=== PATIENT | female | born 1990 | race Caucasian/White ===

== ENCOUNTER 2017-10-18 18:54 | Emergency (ER) | payer OTHER ==
[~2017-10-18] VITALS: Ht 162.6 cm; Wt 150.6 kg
--- OUTSIDE RECORDS SUMMARY | ~2017-10-18 | XMS | Clinical Summary ---
Demographics + + + | Address | [address] | | | [address] | | | [place] [address] | + + + | Home Phone | | + + + | Preferred Language | Unknown | + + + | Marital Status | | + + + | Church Affiliation | Unknown | + + + | Race | Unknown | + + + | Ethnic Group | Unknown | + + + Author + + + | Author | [facility] | + + + | Organization | [facility] | + + + | Address | Unknown | + + + | Phone | Unavailable | + + + Support + + + + + | Name | Relationship | Address | Phone | + + + + + | Dieter Bourne | ECON | [address], [place] | | | | | [address] | | + + + + + Care Team Providers + +------+ + | Care Reception Clerk Name | Role | Phone | + +------+ + | Clinic, [facility] | PP | Unavailable | | Community | | | + +------+ + Allergies Not on File Current Medications Not on file Active Problems Not [...] on file | | + + + Plan of Treatment Not on file Results Not on filefrom Last 3 Months"
--- OUTSIDE RECORDS SUMMARY | ~2017-10-18 | XMS | Clinical Summary ---
Demographics + + + | Address | [address] | | | [address] | | | [place] [address] | + + + | Home Phone | | + + + | Preferred Language | Unknown | + + + | Marital Status | | + + + | Evangelical Affiliation | Unknown | + + + | Race | Unknown | + + + | Ethnic Group | Unknown | + + + Author + + + | Author | [email or web address] | + + + | Organization | [email or web address] | + + + | Address | Unknown | + + + | Phone | Unavailable | + + + Support + + + + + | Name | Relationship | Address | Phone | + + + + + | Dieter Bourne | ECON | [address], [place] | | | | | [address] | | + + + + + Care Team Providers + +------+ + | Care Data Librarian Name | Role | Phone | + +------+ + | Clinic, [facility] | PP | Unavailable | | Community [...]
[~2017-10-18 18:54] MED LIST: ABILIFY MAINTE400 M1 IM; ABILIFY10 MG PO; AUGMENTIN 875-1 EACH PO; BACTRIM DS TAB1 EACH PO; CEPHALEXIN500 MG PO; CYCLOBENZAPRINE10 MG PO; LEXAPRO10 MG PO; MOBIC15 MG PO; MOTRIN IB200 MG PO; NICOTINE PATCH1 EACH TD; NORCO 5-325 TA1 EACH PO; PERCOCET 5-3251 EACH PO; PROZAC20 MG PO; VITAFOL-OB+DHA1 EACH PO
[2017-10-18] MEDS ORDERED: MELOXICAM7.5 MG PO (19:11)
[2017-10-18] MEDS ORDERED: LAMICTAL100 MG PO (19:11)
[2017-10-18] MEDS ORDERED: CRUTCH1 EACH (19:32)
== END 2017-10-18 19:40 | disposition home or self-care (01) ==
LOC: ED 18:54
DX: M25.562 Pain in left knee (principal); G89.29 Other chronic pain; F17.200 Nicotine dependence, unspecified, uncomplicated; Z88.8 Allergy status to other drugs, medicaments and biological substances; Z79.899 Other long term (current) drug therapy; Z98.890 Other specified postprocedural states
CPT/HCPCS: 73560; 99283

== ENCOUNTER 2018-04-21 17:39 | Emergency (ER) | payer OTHER ==
[~2018-04-21] VITALS: Ht 162.6 cm; Wt 145.2 kg
--- OUTSIDE RECORDS SUMMARY | ~2018-04-21 | XMS | Encounter Summary ---
Demographics + + + | Address | [address] | | | [place] [address] | + + + | Home Phone | | + + + | Preferred Language | Unknown | + + + | Marital Status | Single | + + + | Hinduism Affiliation | Unknown | + + + | Race | Unknown | + + + | Ethnic Group | Unknown | + + + Author + + + | Author | [facility] | + + + | Organization | [facility] | + + + | Address | Unknown | + + + | Phone | Unavailable | + + + Support + + +---------+ + | Name | Relationship | Address | Phone | + + +---------+ + | Nico Romero | ECON | Unknown | | + + +---------+ + | Amy Scanlon | ECON | Unknown | | + + +---------+ + Care Team Providers + +------+ + | Care Cemetery Vault Installer Name | Role | Phone | + +------+ + | Kari Flores PA-C | PCP | | + +------+ + Reason for Visit + + + | Reason | Comments | + + + | Establish Care | Headaches | + + + Consult and Treat (Routine) + +--------+ + + + + | Status | Reason | Specialty | Diagnoses / | Referred By | Referred To | | | | | Procedures | Contact | Contact | + +--------+ + + + + | Authorized | | Neurology | Diagnoses | Mark, | Concepción, | | | | | Benign | Kari | MD Ary | | | | | intracranial | E, PA-C | [address] | | | | | | [address] | | | | | hypertension | [address] | [place], [place] | | | | | | [place], | [address] Phone: | | | | | | [place] | [phone] | | | | | | [address] | Fax: | | | | | | Phone: | [phone] | | | | | | [phone] | | | | | | | Fax: | | | | | | | [phone] | | + +--------+ + + + + Encounter Details +--------+---------+ + + + | Date | Type | Department | Care Team | Description | +--------+---------+ + + + | 02/16/ | Office | [facility] | Ary Beebe, | Pseudotumor cerebri | | 2018 | Visit [facility] | [address] | (Primary Dx); | | | | [address] | [place] | Tension headache | | | | [place] | [address] | | | | | [address] | | | | | | [phone] | | | +--------+---------+ + + + Social History + +-------+ +--------+------+ | Tobacco Use | Types | Packs/Day | Years | Date | | | | | Used | | + +-------+ +--------+------+ | Current Every Day | | 1 | 15 | | | Smoker | | | | | + +-------+ +--------+------+ + +---+---+---+ | Smokeless Tobacco: | | | | | Never Used | | | | + +---+---+---+ + + | Tobacco Cessation: Ready to Quit: No; Counseling Given: No | + + + + +---------+ + | Alcohol Use | Drinks/We | oz/Week | Comments | | | ek | | | + + +---------+ + | No | | | | + + +---------+ + + + + | Sex Assigned at | Date Recorded | | | | + + + | Not on file | | + + + as of this encounter Last Filed Vital Signs + + + + | Vital Sign | Reading | Time Taken | + + + + | Blood Pressure | 119/78 | 02/16/2018 10:12 AM PDT | + + + + | Pulse | 76 | 02/16/2018 10:12 AM PDT | + + + + | Temperature | - | - | + + + + | Respiratory Rate | - | - | + + + + | Oxygen Saturation | 99% | 02/16/2018 10:12 AM PDT | + + + + | Inhaled Oxygen | - | - | | Concentration | | | + + + + | Weight | 145.6 kg (321 lb) | 02/16/2018 10:12 AM PDT | + + + + | Height | 162.6 cm (5' 4") | 02/16/2018 10:12 AM PDT | + + + + | Body Mass Index | 55.1 | 02/16/2018 10:12 AM PDT | + + + + in this encounter Instructions Patient Instructions - Ary Beebe MD - 02/16/2018 10:15 AM PDTWill order a spinal t ap to check the opening pressure. If it is elevated, you will be notified to start Diamox. You will also be notified to then go see an eye doctor to get visual eng done Try and work on weight management Drink about 6-8 glasses of water daily Use the BiPAP regularly Get labsin this encounter Progress Notes Ary Beebe MD - 02/16/2018 10:15 AM PDTFormatting of this note may be different fro m the original. Subjective: Patient ID: Concepcion Fierro is a 27 y.o. female here for evaluation of headache. Referred b y PCP Ms Kari Flores PA-C HPI The following portions of the patient's history were reviewed and updated as appropriate an d is available elsewhere in the record: allergies, current medications, past family history, past medical history, past social history, past surgical history and problem list. Concepcion is a 27 yo lady with h/o pseudotumor cerebri, morbid obesity, h/o schizophrenia. Cocnepcion states that she has a lengthy history of headaches that began in 2004. She was init ially evaluated by Dr. Armstrong in [address] of the head which did not show any mas s. She did have a lumbar puncture in October 2007 and opening pressure was recorded at 37 mm/wa ter. She recalls that Dr. Armstrong had put her on Diamox which she took for a couple of year s. She then lost medical insurance and did not follow up. She does not recall any prior lo ss of vision. She states that she continues to have headaches. However, in the last six mo nths they have worsened and each headache seems to last about a week. She does take Mobic a nd Tylenol which helps a little. She has also tried caffeine in the past. Headaches are lo cated at the forehead or the base of the neck. She reports that headaches are not very inte nse, usually about 3 out of 10. It feels like a tight sensation or a sharp sensation someti mes. However, she states that she cannot handle loud noises and especially indoors and she is sensitive to having music as well as somebody talking at the same time. She does have a history of migraines but only about twice a year. She denies any whooshing sound in her ears. Vision has not blackened any time but she does feel that it fluctuates sometimes and goes out of focus for a few seconds. It is has occurred at least twice a mario h in the past few months. She does feel better if she lies down. She has two children born in 2011 and 2015. She gained a lot of weight with her second pre gnancy. 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 She intends to quit completely. Abhijit cuevas is also trying to quit marijuana. She recalls being about 200 pounds weight in 2007, currently 321 pounds. She believes that the medication that she takes was contributing as well. No h/o growth hormone, tetracyclines, retinoids, vitamin A supplements, current lithium use . Was on it in the past. No h/o Thyroid replacement No h/o recent corticosteroid use/cessation No h/o Db disease, Hypoparathyroidism, SLE Is not sure if she has PCOS. Has sleep apnea and uses BiPAP Current Outpatient Prescriptions: escitalopram (LEXAPRO) 20 MG tablet, Take 20 mg by mouth daily., Disp: , Rfl: Etonogestrel (IMPLANON SC), Inject into the skin., Disp: , Rfl: lamoTRIgine (LAMICTAL) 100 MG tablet, Take 100 mg by mouth daily., Disp: , Rfl: meloxicam (MOBIC) 15 MG tablet, , Disp: , Rfl: penicillin v potassium (VEETID) 500 MG tablet, , Disp: , Rfl: Review of Systems HENT: Positive for hearing loss and voice change. Eyes: Positive for visual disturbance. Musculoskeletal: Positive for arthralgias and gait problem. Neurological: Positive for facial asymmetry and headaches. Psychiatric/Behavioral: Positive for confusion, decreased concentration, dysphoric mood, bone llucinations and self-injury. The patient is nervous/anxious. All other systems reviewed and are negative. Objective: BP 119/78 (BP Location: Right forearm, Patient Position: Sitting) | Pulse 76 | Ht 1.626 m (5' 4") | Wt 145.6 kg (321 lb) | SpO2 99% | ? No | BMI 55.10 kg/m Neurologic Exam Physical Exam GENERAL: young adult woman, morbidly obese, pleasant, in NAD HEENT: no neck rigidity , supple neck, pale discs but not engorged, disc margins seen clear ly HEART: RRR, no murmur LUNGS: bilateral breath sounds heard, no rhonchi EXTREMITIES: No pedal edema NEUROLOGIC EXAM: COGNITION: awake, alert, oriented x4,able to name, read, repeat, fluent speech, follows c ommands. CRANIAL NERVES: PERRL, visual eng full, EOMI, no nystagmus, facial sensation intact to light touch, facial movement symmetric full, hearing intact to finger rub bilat, palate elevates symmetric, SCM and trapezius 5/5 bilat, tongue protrudes midline. MOTOR: tone and bulk normal, no pronator drift, strength 5/5 throughout Delt Bic Tric Interossei WE WF HF KF KE DF PF R 5 5 5 5 5 5 5 5 5 5 5 L 5 5 5 5 5 5 5 5 5 5 5 REFLEXES: 2+ symmetric bilateral biceps, triceps, brachioradialis, patella, achilles. Toes down-going bilat SENSORY: intact to light touch, cold, and vibration throughout. COORDINATION: Finger nose finger intact bilat, Foot tapping intact bilat. ROMBERG: intact GAIT: mild wide based gait Assessment and Plan: Concepcion is a 27-year-old lady with a history of chronic headaches, diagnosis of pseudotumor cerebri in 2007, who was on carbonic anhydrase inhibitors for a couple of years who reports increased frequency of headaches over the last six months. She has mild blurring of vision intermittently. On examination she does not have signs of papilledema. The disks appear slightly pale. No other focal neurological deficits. IMPRESSION: Possible chronic tension headaches but pseudotumor cerebri has to be ruled out as the patient has history of marked obesity with weight gain of over 120 pounds in the las t 10 years. RECOMMENDATIONS: 1. I counseled the patient that if she does have pseudotumor cerebri, weight loss is the cu re. She would need to lose at least 15% of her current weight. 2. She was recommended to undergo lumbar puncture to document opening pressures. If the pr essures are elevated, I will start her on Diamox. 3. She would also be asked to obtain visual eng from an wood cabinet finisher. She has limited fu nds and therefore would like to wait for LP before seeing an wood cabinet finisher. She was advised ab out acute symptoms of vision loss and advised to go to the ER if she has that. 4. Plan to follow up in 2-3 weeks. in this encounter Plan of Treatment +--------+ + + + + | Date | Type | Specialty | Care Team | Description | +--------+ + + + + | 05/22/ | Office | Neurology | Aftabniviamaria dAry, | | | 2017 | Visit | | MD Harvey Jamison | | | | | | [place] | | | | | | [address] | | | | | | | | +--------+ + + + + | 06/06/ | Procedure | Plastic Surgery | Larias Carpenter | | | 2017 | visit | | [facility] [address] | | | | | | [address] | | | | | | [place] [address] | | | | | | [phone] | | | | | | | | +--------+ + + + + as of this encounter Results X-ray lumbar puncture diagnostic (03/28/2018 10:23 AM) + + + | Impressions | Performed At | + + + | 1. Successful diagnostic lumbar puncture and CSF collection. | [facility] | | 2. 20-mL of CSF was collected and sent to the laboratory. | [facility] | | 3. Post procedure instructions were given to the | | | patient. Specifically, I informed the patient not to perform any | | | strenuous activity or heavy lifting for the next 24 hours. The | | | patient was also instructed to call the department for instructions if | | | any signs of post dural puncture headache developed over the next | | | several days. I explained that bedrest and caffeine products can | | | help, but if the symptoms do not resolve after several days of bedrest | | | it may be necessary to perform an epidural blood patch. | | | | | + + + + + + | Narrative | Performed At | + + + | [facility] X[facility] LUMBAR PUNCTURE DIAGNOSTIC 03/28/2018 10:23 AM | [facility] | | HISTORY: 27 years. Female. Pseudotumor cerebri. | [facility] | | COMPARISON: 11/06/2007. DESCRIPTION OF PROCEDURE: Prior to | | | beginning the procedure, I obtained written informed consent and I | | | marked the patient's skin on the side where the procedure was to be | | | performed. A timeout was performed. The patient was placed in | | | the prone position. The skin site over the midline L4-L5 | | | interlaminar notch was selected and marked. The skin was then | | | prepped and draped in the usual sterile fashion and anesthetized with | | | 1% lidocaine buffered with sodium bicarbonate. Subsequently, a | | | 22-gauge 6 inch spinal needle was advanced into the thecal sac. CSF | | | was obtained on the first attempt. Tubing was attached to the hub | | | of the needle and a total volume of 20-mL of CSF was collected and | | | distributed over 4 tubes. Color: clear. The needle was then | | | removed. The patient tolerated the procedure well. No | | | complications. FLUOROSCOPY TIME: 0.1 minutes. PEAK SKIN DOSE: | | | 29.6 mGy. COMPLICATIONS: None. Opening pressure at the | | | beginnin.5 cm of water. Opening pressure after removal of 20 cc | | | of water: 18.5 cm of water. | | + + + + + | Procedure Note | + + | Jacques, Rad Results In - 03/28/2018 12:01 PM [facility] LUMBAR PUNCTURE | | [id number]/9/2018 10:23 AMHISTORY:27 years. Female. Pseudotumor | | cerebri.COMPARISON:11/06/2007.DESCRIPTION OF PROCEDURE:Prior to beginning the procedure, | | I obtained written informed consent and I marked the patient's skin on the side where | | the procedure was to be performed. A timeout was performed. The patient was placed in | | the prone position. The skin site over the midline L4-L5 interlaminar notch was | | selected and marked. The skin was then prepped and draped in the usual sterile fashion | | and anesthetized with 1% lidocaine buffered with sodium bicarbonate. Subsequently, a | | 22-gauge 6 inch spinal needle was advanced into the thecal sac. CSF was obtained on the | | first attempt. Tubing was attached to the hub of the needle and a total volume of | | 20-mL of CSF was collected and distributed over 4 tubes. Color: clear. The needle was | | then removed. The patient tolerated the procedure well.No complications.FLUOROSCOPY | | TIME:0.1 minutes.PEAK SKIN DOSE:29.6 mGy.COMPLICATIONS:None.Opening pressure at the | | beginnin.5 cm of water.Opening pressure after removal of 20 cc of water: 18.5 cm of | | water.IMPRESSION:1. Successful diagnostic lumbar puncture and CSF collection.2. 20-mL | | of CSF was collected and sent to the laboratory.3. Post procedure instructions were | | given to the patient. Specifically, I informed the patient not to perform any strenuous | | activity or heavy lifting for the next 24 hours. The patient was also instructed to | | call the department for instructions if any signs of post dural puncture headache | | developed over the next several days. I explained that bedrest and caffeine products | | can help, but if the symptoms do not resolve after several days of bedrest it may be | | necessary to perform an epidural blood patch. | | | |COMPLICATIONS: | |None. | | | |Opening pressure at the beginnin.5 cm of water. | |Opening pressure after removal of 20 cc of water: 18.5 cm of water. | | | |IMPRESSION: | |1. Successful diagnostic lumbar puncture and CSF collection. | |2. 20-mL of CSF was collected and sent to the laboratory. | |3. Post procedure instructions were given to the patient. Specifically, I informed the pa tient not to perform any strenuous activity or heavy lifting for the next 24 hours. The pat ient was also instructed to call | |the department for instructions if any signs of post dural puncture headache developed over the next several days. I explained that bedrest and caffeine products can help, but if the symptoms do not resolve after | |several days of bedrest it may be necessary to perform an epidural blood patch. | | | | | + + + + + + + | Performing | Address | City/State/Zipcode | Phone Number | | Organization | | | | + + + + + | [facility] | [address] | [place] [address] | | + + + + + Protein, CSF (03/28/2018 10:20 AM) + +-------+ + + | Component | Value | Ref Range | Performed At | + +-------+ + + | CSF TOTAL PROTEIN | 24 | 15 - 45 mg/dL | [facility] | + +-------+ + + + + | Specimen | + + | Cerebrospinal Fluid | | - CSF | + + + + + + + | Performing | Address | City/State/Zipcode | Phone Number | | Organization | | | | + + + + + | [facility] | [address] | [place] [address] | | + + + + + Glucose, CSF (03/28/2018 10:20 AM) + +-------+ + + | Component | Value | Ref Range | Performed At | + +-------+ + + | CSF GLUCOSE | 58 | 45 - 90 mg/dL | [facility] | + +-------+ + + + + | Specimen | + + | Cerebrospinal Fluid | | - Lumbar Puncture | + + + + + + + | Performing | Address | City/State/Zipcode | Phone Number | | Organization | | | | + + + + + | [facility] | [address] | [place] [address] | | + + + + + CSF Cell Count With Differential (03/28/2018 10:20 AM) + + + + + | Component | Value | Ref Range | Performed At | + + + + + | COLOR | COLORLESS | | [facility] | + + + + + | APPEARANCE | CLEAR | | [facility] | + + + + + | Tube Number, CSF | 3 | | [facility] | + + + + + | CSF RBC | 150 (H) | 0 /uL | [facility] | + + + + + | CSF WBC | 0 | 0 - 5 /uL | [facility] | + + + + + + + | Specimen | + + | Cerebrospinal Fluid | | - CSF | + + + + + + + | Performing | Address | City/State/Zipcode | Phone Number | | Organization | | | | + + + + + | [facility] | [address] | [place] [address] | | + + + + + Comprehensive metabolic panel (02/16/2018 11:17 AM) + + + + + | Component | Value | Ref Range | Performed At | + + + + + | SODIUM | 140 | 135 - 145 mmol/L | [facility] | | | | | [facility] | + + + + + | POTASSIUM | 4.2 | 3.5 - 4.9 mmol/L | [facility] | | | | | [facility] | + + + + + | CHLORIDE | 104 | 99 - 109 mmol/L | [facility] | | | | | [facility] | + + + + + | CO2 | 25 | 23 - 32 mmol/L | [facility] | | | | | [facility] | + + + + + | ANION GAP AGAP | 15 | 5 - 20 mmol/L | [facility] | | | | | [facility] | + + + + + | GLUCOSE | 81 | 65 - 99 mg/dL | [facility] | | | | | [facility] | + + + + + | BUN | 16 | 8 - 25 mg/dL | [facility] | | | | | [facility] | + + + + + | CREATININE | 0.8 | 0.50 - 1.00 mg/dL | [facility] | | | | | [facility] | + + + + + | BUN/CREAT | 20 | | [facility] | | | | | [facility] | + + + + + | CALCIUM | 8.9 | 8.5 - 10.5 mg/dL | [facility] | | | | | [facility] | + + + + + | TOTAL PROTEIN | 7.4 | 6.3 - 8.2 g/dL | [facility] | | | | | [facility] | + + + + + | Albumin | 3.7 | 3.6 - 5.0 g/dL | [facility] | | | | | [facility] | + + + + + | GLOBULIN | 3.7 | 1.3 - 4.9 g/dL | [facility] | | | | | [facility] | + + + + + | A/G | 1.0 | 1.0 - 2.4 | [facility] | | | | | [facility] | + + + + + | TBIL | 0.4 | 0.1 - 1.5 mg/dL | [facility] | | | | | [facility] | + + + + + | ALK PHOS | 92 | 35 - 115 U/L | [facility] | | | | | [facility] | + + + + + | AST | 17 | 10 - 45 U/L | [facility] | | | | | [facility] | + + + + + | ALT | 30 | 10 - 65 U/L | [facility] | | | | | [facility] | + + + + + | EGFR | >60Comment: GFR <60: | >60 mL/min/1.73_m2 | [facility] | | | CHRONIC KIDNEY DISEASE, | | LABORATORY | | | IF FOUND OVER A 3 MONTH | | | | | PERIOD. GFR <15: KIDNEY | | | | | FAILURE. FOR | | | | | AMERICANS, MULTIPLY THE | | | | | CALCULATED GFR BY 1.210. | | | | | This eGFR is calculated | | | | | using the MDRD IDVA | | | | | traceable equation. | | | + + + + + + + | Specimen | + + | Blood | + + + + + + + | Performing | Address | City/State/Zipcode | Phone Number | | Organization | | | | + + + + + | [facility] | [address] | [place] [address] | [phone] | | LABORATORY | [address] | | | + + + + + TSH (02/16/2018 11:17 AM) + +-------+ + + | Component | Value | Ref Range | Performed At | + +-------+ + + | TSH | 1.820 | 0.450 - 5.100 | [facility] | | | | u[iU]/mL | LABORATORY | + +-------+ + + + + | Specimen | + + | Blood | + + + + + + + | Performing | Address | City/State/Zipcode | Phone Number | | Organization | | | | + + + + + | [facility] | [address] | [place] [address] | [phone] | | LABORATORY | [address] | | | + + + + + CBC W/Auto Diff (Reflex to Manual) (02/16/2018 11:17 AM) + + + + + | Component | Value | Ref Range | Performed At | + + + + + | WBC | 12.23 (H) | 3.80 - 11.00 10*3/uL | [facility] | | | | | [facility] | + + + + + | RBC | 4.39 | 3.70 - 5.10 10*6/uL | [facility] | | | | | LAB[facility] | + + + + + | HGB | 14.1 | 11.3 - 15.5 g/dL | [facility] | | | | | [facility] | + + + + + | HCT | 40.7 | 34.0 - 46.0 % | [facility] | | | | | LAB[facility]ORY | + + + + + | MCV | 92.7 | 80.0 - 100.0 fL | [facility] | | | | | [facility]ORY | + + + + + | MCH | 32.2 | 27.0 - 34.0 pg | [facility] | | | | | [facility] | + + + + + | MCHC | 34.7 | 32.0 - 35.5 g/dL | [facility] | | | | | [facility] | + + + + + | RDW SD | 44.2 | 37 - 53 fL | [facility] | | | | | [facility] | + + + + + | PLT | 256 | 150 - 400 10*3/uL | [facility] | | | | | [facility] | + + + + + | MPV | 8.6 | fL | [facility] | | | | | [facility] | + + + + + | DIFF TYPE | AUTOMATED | | [facility] | | | | | [facility] | + + + + + | NEUTROPHILS | 60.07 | % | [facility] | | | | | [facility] | + + + + + | LYMPHOCYTES | 31.21 | % | [facility] | | | | | [facility] | + + + + + | MONOCYTES | 6.61 | % | [facility] | | | | | LAB[facility]ORY | + + + + + | EOSINOPHILS | 1.44 | % | [facility] | | | | | [facility] | + + + + + | BASOPHILS | 0.67 | % | [facility] | | | | | LAB[facility]ORY | + + + + + | NEUTROPHILS ABS | 7.35 | 1.90 - 7.40 10*3/uL | [facility] | | | | | [facility] | + + + + + | LYMPHOCYTES ABS | 3.82 | 1.00 - 3.90 10*3/uL | [facility] | | | | | [facility] | + + + + + | MONOCYTES ABS | 0.81 (H) | 0.00 - 0.80 10*3/uL | [facility] | | | | | [facility] | + + + + + | EOSINOPHILS ABS | 0.18 | 0.00 - 0.50 10*3/uL | [facility] | | | | | LAB[facility]ORY | + + + + + | BASOPHILS ABS | 0.08 | 0.00 - 0.10 10*3/uL | [facility] | | | | | [facility] | + + + + + + + | Specimen | + + | Blood | + + + + + + + | Performing | Address | City/State/Zipcode | Phone Number | | Organization | | | | + + + + + | [facility] | [address] | [place] [address] | [phone] | | LABORATORY | [address] | | | + + + + + in this encounter Visit Diagnoses + + | Diagnosis | + + | Pseudotumor cerebri - Primary | + + | Benign intracranial hypertension | + + | Tension headache | + +
--- OUTSIDE RECORDS SUMMARY | ~2018-04-21 | XMS | Encounter Summary ---
Demographics + + + | Address | [address] | | | [place] [address] | + + + | Home Phone | | + + + | Preferred Language | Unknown | + + + | Marital Status | Single | + + + | Buddhist Affiliation | Unknown | + + + | Race | Unknown | + + + | Ethnic Group | Unknown | + + + Author + + + | Author | [facility] [employer] | + + + | Organization [...] Team Providers + +------+ + | Care Vice President Client Services Name | Role | Phone | + +------+ + | Kari Flores PA-C | PCP | | + +------+ + Reason for Referral MRI/CAT Scan (Routine) +--------+--------+ + + + + | Status | Reason | Specialty | Diagnoses / | Referred By | Referred To | | | | | Procedures | Contact | Contact | +--------+--------+ + + + + | Closed | | Radiology | Diagnoses | [facility] | [facility] [address] | | | | | Pseudotumor | MD Ary | [address] | | | | | cerebri | [address] | | | | | Procedures | [address] | [place], [place] | | | | | CT head | [place], | [address] Phone: | | | | | without | [place] [address] | [phone] | | | | | contrast | Phone: | | | | | | | [phone] | | | | | | | Fax: | | | | | | | [phone] | | +--------+--------+ + + + + Encounter Details +--------+ + + + + | Date | Type | Department | Care Team | Description | +--------+ + + + + | 02/21/ | Telephone | [facility] | Patti, | | | 2017 | | Neuroscience [facility] | AIDAN Lafleur | | | | | [address] | | | | | | [place] | | | | | | [address] | | | | | | [phone] | | | +--------+ + + + + Social History + +-------+ [...] | | | + +---+---+---+ + + +---------+ + | Alcohol Use [...] + + + as of this encounter Plan of Treatment +--------+ + + + + | Date | Type | Specialty | Care Team | Description | +--------+ + + + + | 05/22/ | Office | Neurology | Ary Beebe, | | | 2017 | Visit | | MD Harvey Jamison | | | | | | [place] | | | | | | [address] | | | | | | | | +--------+ + + + + | 06/06/ | Procedure | Plastic Surgery | Larisa Carpenter | | | 2017 | visit | | [address] | | | | | | [address] | | | | | | [place] [address] | | | | | | [phone] | | | | | | | | +--------+ + + + + as of this encounter Results CT head without contrast (03/28/2018 8:10 AM) + + + | Impressions | Performed At | + + + | 1. Normal noncontrast CT scan of the head. 2. No evidence of | [facility] | | hydrocephalus, intracranial mass or cerebral edema that would preclude | RADIOLOGY | | lumbar puncture. Electronically signed by Kaushal Ricketts DO on | | | 03/28/2018 8:17 AM | | + + + + + + | Narrative | Performed At | + + + | [facility] HEAD WO CONTRAST 03/28/2018 8:10 AM HISTORY: | [facility] | | 27 years. Female. Pseudotumor cerebri. TECHNIQUE: 5-mm | RADIOLOGY | | axial noncontrast images were acquired from the foramen magnum through | | | the cranial vertex. Radiation dose reduction was performed with | | | automated exposure control. COMPARISON: CT head 11/06/2007 | | | FINDINGS: The brain parenchyma does not demonstrate acute intra-axial | | | hemorrhage, midline shift, mass effect or cerebral edema. The | | | ventricles, cisterns and sulci are normal in size and | | | configuration. Normal mattson-white differentiation is | | | preserved. No extra-axial fluid collections are noted. The | | | orbits and their contents are normal. The paranasal sinuses are | | | well aerated. No mucosal thickening or air-fluid levels are | | | noted. The mastoid air cells show normal pneumatization | | | bilaterally. No mastoid fluid noted. The osseous structures of | | | the calvaria do not demonstrate fracture. No lytic or blastic | | | lesions are noted. | | + + + + + | Procedure Note | + + | Jacques, Rad Results In - 03/28/2018 8:23 AM PDT [facility] HEAD WO | | [id number]/9/2018 8:10 AMHISTORY:27 years. Female. Pseudotumor cerebri.TECHNIQUE:5-mm | | axial noncontrast images were acquired from the foramen magnum through the cranial | | vertex. Radiation dose reduction was performed with automated exposure | | control.COMPARISON:CT head 11/06/2007FINDINGS:The brain parenchyma does not demonstrate | | acute intra-axial hemorrhage, midline shift, mass effect or cerebral edema. The | | ventricles, cisterns and sulci are normal in size and configuration. Normal mattson-white | | differentiation is preserved. No extra-axial fluid collections are noted. The orbits | | and their contents are normal. The paranasal sinuses are well aerated. No mucosal | | thickening or air-fluid levels are noted. The mastoid air cells show normal | | pneumatization bilaterally. No mastoid fluid noted. The osseous structures of the | | calvaria do not demonstrate fracture. No lytic or blastic lesions are | | noted.IMPRESSION:1. Normal noncontrast CT scan of the head.2. No evidence of | | hydrocephalus, intracranial mass or cerebral edema that would preclude lumbar | | puncture. | |differentiation is preserved. No extra-axial fluid collections are noted. The orbits and their contents are normal. The paranasal sinuses are well aerated. No mucosal thickening o r air-fluid levels are noted. The | |mastoid air cells show normal pneumatization bilaterally. No mastoid fluid noted. The oss eous structures of the calvaria do not demonstrate fracture. No lytic or blastic lesions ar e noted. | | | |IMPRESSION: | |1. Normal noncontrast CT scan of the head. | |2. No evidence of hydrocephalus, intracranial mass or cerebral edema that would preclude l umbar puncture. | | | | | + + + + + + + | Performing | Address | City/State/Zipcode | Phone Number | | Organization | | | | + + + + + | [facility] | [address] | [place] [address] | | + + + + + in this encounter Visit Diagnoses + + | Diagnosis | + + | Pseudotumor cerebri - Primary | + + | Benign intracranial hypertension | + +"
--- OUTSIDE RECORDS SUMMARY | ~2018-04-21 | XMS | Encounter Summary ---
Demographics + + + | Address | [address] | | | [place] [address] | + + + | Home Phone | | + + + | Preferred Language | Unknown | + + + | Marital Status | Single | + + + | Worship Affiliation | Unknown | + + + | Race | Unknown | + + + | Ethnic Group | Unknown | + + + Author + + + | Author | [facility] | + + + | Organization [...] Team Providers + +------+ + | Care Boot Turner Name | Role | Phone | + +------+ + | Kari Flores PA-C | PCP | | + +------+ + Reason for Visit + + + | Reason | Comments | + + + | Follow-up | Pseudotumor cerebri | + + + Consult and Treat [...] | | hypertension | [address] | [place], [place] | | | | | | [place], | [address] Phone: | | | | | | [place] | [phone] | | | | | | [address] | Fax: | | | | | | Phone: | [phone] | | | | | | [phone] | | | | | | | Fax: | | | | | | | [phone] | | + +--------+ + + + + Encounter Details +--------+---------+ + + + | Date | Type | Department | Care Team | Description | +--------+---------+ + + + | 10/09/ | Office | [facility] | Ary Beebe, | IIH (idiopathic | | 2018 | Visit | [facility] | [address] | intracranial | | | | [address] | [place] | hypertension) | | | | [place] | [address] | (Primary Dx); | | | | [address] | | Tension headache; | | | | [phone] | | Morbid obesity with | | | | | | BMI of 50.0-59.9, | | | | | | adult (HCC) | +--------+---------+ + + + Social History [...] + + + | Blood Pressure | 89/72 | 03/28/2018 1:13 PM PDT | + + + + | Pulse | 83 | 03/28/2018 1:13 PM PDT | + + + + | Temperature | - | - | + + + + | Respiratory Rate | - | - | + + + + | Oxygen Saturation | 100% | 03/28/2018 1:13 PM PDT | + + + + | Inhaled Oxygen | - | - | | Concentration | | | + + + + | Weight | 145.2 kg (320 lb) | 03/28/2018 1:13 PM PDT | + + + + | Height | 162.6 cm (5' 4") | 03/28/2018 1:13 PM PDT | + + + + | Body Mass Index | 54.93 | 03/28/2018 1:13 PM PDT | + + + + in this encounter Instructions Patient Instructions - Ary Beebe MD - 03/28/2018 1:15 PM PDTGo back to PCP and ge t a referral to a local consumer relations specialist. You will need visual eng and OCT if possible to ensure that your eyes are not being affe cted due to increased intracranial pressure. The spinal tap showed an opening pressure of 29.5 which is mildly elevated. We will start you back on Diamox Tab Diamox 250mg Take 1 tab twice a day for 3 days Then increase to 1 tab three times a day If headaches improve, stay on this dose If not, call back in 15 days. And you will be instructed to go up on the dose. in this encounter Progress Notes Ary Beebe MD - 03/28/2018 1:15 PM PDTFormatting of this note may be different fro m the original. Subjective: Patient ID: Kiarra Fierro is a 27 y.o. female here for follow up of intractable headache. HPI The following portions of the patient's history were reviewed and updated as appropriate an d is available elsewhere in the record: allergies, current medications, past family history, past medical history, past social history, past surgical history and problem list. Kiarra is a 27 yo lady from [place], [place] with h/o pseudotumor cerebri, morbid obesity, h/o schizophrenia. Kiarra states that she has a lengthy history of headaches that began in 2004. Was diagnose d with IIH -lumbar puncture in October 2007 with opening pressure recorded at 37 mm/water. She recalls that Dr. Armstrong had put her on Diamox which she took for a couple of years. She th en lost medical insurance and did not follow up. She does not recall any prior loss of visi on. She states that she continues to have headaches. However,six months prior to initial cons ult in January 2018, they have worsened and each headache seems to last about a week. She do es take Mobic and Tylenol which helps a little. She does have a history of migraines [...] has two children born in 2011 and 2015.She recalls being about 200 pounds weight in 200 8, currently 321 pounds. 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 Has sleep apnea and uses BiPAP On follow up, Here with a friend Has undergone LP today under fluoroscopic guidance. Opening pressure was documented as 29.5 cmH20. She was lying prone for this. Closing pressure was 18.5 She feels the pressure behind her eyes have reduced but her eyes feel sore. She also had se antonieta headache immediately after but that has resolved with a pain medication. She denies headaches as she sits up now. CT head was done prior to the procedure. IMPRESSION: 1. Normal noncontrast CT scan of the head. 2. No evidence of hydrocephalus, intracranial mass or cerebral edema that would preclude l umbar puncture. Current Outpatient Prescriptions: escitalopram (LEXAPRO) 20 MG tablet, Take 20 mg by mouth daily., Disp: , Rfl: Etonogestrel (IMPLANON SC), Inject into the skin., Disp: , Rfl: GuanFACINE HCl (INTUNIV) 4 MG TB24, Take 1 tablet by mouth., Disp: , Rfl: lamoTRIgine (LAMICTAL) 100 MG tablet, Take 100 mg by mouth 2 (two) times daily., Disp: , Rfl: meloxicam (MOBIC) 15 MG tablet, , Disp: , Rfl: No current facility-administered medications for this visit. Review of Systems No new symptoms compared to consult note dated 02/16/18 Objective: Physical Exam BP (!) 89/72 (BP Location: Left upper arm, Patient Position: Sitting) | Pulse 83 | Ht 1.6 26 m (5' 4") | Wt 145.2 kg (320 lb) | SpO2 100% | BMI 54.93 kg/m Young adult lady, morbidly obese. Mildly photophobic. Seems to be uncomfortable. Neuro Alert, oriented, fluent speech. PERRL. EOMI. No nystagmus. No papilledema (prior h/o) Face symmetric. Assessment and Plan: Kiarra is a 27-year-old lady with a history of chronic headaches, diagnosis of pseudotumor cerebri in 2007, who was on carbonic anhydrase inhibitors for a couple of years who reports increased frequency of headaches over the last six months. She has mild blurring of vision intermittently.On examination she does not have signs of papilledema. The disks appear slig htly pale. On follow up, Has undergone LP today under fluoroscopic guidance. Opening pressure was documented as 29.5 cmH20. She was lying prone for this. Closing pressure was 18.5 She feels the pressure behind her eyes have reduced but her eyes feel sore. She also had se antonieta headache immediately after but that has resolved with a pain medication. She denies headaches as she sits up now. CT head without contrast was done prior to the procedure today which was normal. IMPRESSION: Probable pseudotumor cerebri as LP revealed mild elevation of opening pressure at 29.5 cmH20. Significant weight gain over last few years also correlates with this diagn osis. However CT head does not show slit like ventricles which is seen typically with a diag nosis of pseudotumor cerebri. Papilledema is not seen on exam but this is unreliable in thos e who have prior history of pseudotumor cerebri as scarring of tissue can occur. Chronic tension headaches are still in the differential. RECOMMENDATIONS: 1. I counseled the patient about probable diagnosis. 2. Recommend that she see PCP and get a referral to a local anaesthesiologist or embroidery machine operator - Visual eng and optical coherence tomography will establish if optic nerve edema and vis ual field defects are present. This can be followed along during treatment. 3. Tab Diamox 250mg Take 1 tab twice a day for 3 days Then increase to 1 tab three times a day If headaches improve, stay on this dose If not, call back in 15 days. And you will be instructed to go up on the dose. She was advised about acute symptoms of vision loss and advised to go to the ER if she has that. Plan to follow up in 6 weeks or earlier if needed. At her request, she received a 2 day off work letter as she may have worsening headache fro m spinal tap today. in this encounter Plan of Treatment +--------+ + + + + | Date | Type | Specialty | Care Team | Description | +--------+ + + + + | 05/22/ | Office | Neurology | Ary Beebe, | | | 2017 | Visit | | MD Harvey Jamison | | | | | | [place] | | | | | | [id number] | | | | | | | | +--------+ + + + + | 06/06/ | Procedure | Plastic Surgery | Larisa Carpenter | | | 2017 | visit | | [address] | | | | | | [facility] | | | | | | [place] [address] | | | | | | [phone] | | | | | | | | +--------+ + + + + + +--------+ + + | Name | Priori | Associated Diagnoses | Order Schedule | | | ty | | | + +--------+ + + | Basic metabolic panel | Routin | IIH (idiopathic | Expected: | | | e | intracranial | 03/28/2018, Expires: | | | | hypertension) | 03/28/2019 | + +--------+ + + as of this encounter Visit Diagnoses + + | Diagnosis | + + | IIH (idiopathic intracranial hypertension) - Primary | + + | Benign intracranial hypertension | + + | Tension headache | + + | Morbid obesity with BMI of 50.0-59.9, adult (HCC) | + +
--- OUTSIDE RECORDS SUMMARY | ~2018-04-21 | XMS | Encounter Summary ---
Demographics + + + | Address | [address] | | | [place] [address] | + + + | Home Phone | | + + + | Preferred Language | Unknown | + + + | Marital Status | Single | + + + | Spiritism Affiliation | Unknown | + + + | Race | Unknown | + + + | Ethnic Group | Unknown | + + + Author + + + | Author | [facility] | + + + | Organization [...] Team Providers + +------+ + | Care Ship Joiner Name | Role | Phone | + +------+ + | Kari Flores PA-C | PCP | | + +------+ + Encounter Details +--------+ + + + + | Date | Type | Department | Care Team | Description | +--------+ + + + + | 03/28/ | Hospital | [facility] | Ary Beebe, | Pseudotumor cerebri | | 2018 | Encounter | [facility] | [address] | | | | | [address] | [place] | | | | | [place] [address] | [address] | | | | | [phone] | | | | | | | 1, Di Nurse | | | | | | Imaging, Ryan Naun | | +--------+ + + + + [...] + + + | Blood Pressure | 165/72 | 03/28/2018 10:25 AM PDT | + + + + | Pulse | 82 | 03/28/2018 10:25 AM PDT | + + + + | Temperature | 36.6 C (97.9 F) | 03/28/2018 8:00 AM PDT | + + + + | Respiratory Rate | 18 | 03/28/2018 10:25 AM PDT | + + + + | Oxygen Saturation | 99% | 03/28/2018 10:25 AM PDT | + + + + | Inhaled Oxygen | - | - | | Concentration | | | + + + + | Weight | - | - | + + + + | Height | - | - | + + + + | Body Mass Index | - | - | + + + + in this encounter Discharge Instructions Bette Apodaca RN - 03/28/2018Your doctor performed a lumbar puncture for either the angeles daniele of fluid for analysis, or to inject contrast for xrays and CT scan. Here are some instru ctions for you to care for yourself upon going home. ACTIVITY: Avoid strenuous activity for the next 24 hours. DIET: Drink plenty of fluids. We recommend at least 8 ounces every 2 hours. This will help min imize the risk of spinal headache. You may eat as desired. If you received medication for sedation or pain control, you may experience drowsiness, diz ziness, or blurred vision. You are instructed to: -Rest for the remainder of today. Avoid strenuous activity. -DO NOT drive or perform other tasks requiring alertness or coordination for the remainde r of the day. -Do not make important decision today. -Do not drink alcoholic beverages including beer, wine, or other spirits. It is not unusual to experience a mild headache. If this occurs, return to bedrest with you r head completely flat for another 12-24 hours. You may take Tylenol (acetaminophen) to redu ce your headache. Report to your doctor if you experience any of the following: -Persistent headache longer that 24 hours. -Nausea/Vomiting -Fever/chills -Any problems or concerns regarding this procedure. FOR ANY SEVERE SYMPTOMS, PLEASE REPORT TO YOUR NEAREST EMERGENCY DEPARTMENT If you have any questions regarding your procedure, you may contact the Radiology nurse [phone], ext. [phone] . in this encounter Medications at Time of Discharge + + +--------+---------+ + + | Medication | Sig. | Disp. | Refills | Start | End Date | | | | | | Date | | + + +--------+---------+ + + | acetaZOLAMIDE | Take 1 tablet by | 90 | 5 | 03/28/20 | | | (DIAMOX) 250 MG | mouth 3 (three) | tablet | | 18 | 8 | | tabletIndications: | times daily for 30 | | | | | | IIH (idiopathic | days. | | | | | | intracranial | | | | | | | hypertension) | | | | | | + + +--------+---------+ + + | escitalopram | Take 20 mg by mouth | | | | | | (LEXAPRO) 20 MG | daily. | | | | | | tablet | | | | | | + + +--------+---------+ + + | Etonogestrel | Inject into the | | | 03/20/20 | | | (IMPLANON SC) | skin. | | | 16 | | + + +--------+---------+ + + | GuanFACINE HCl | Take 1 tablet by | | | | | | (INTUNIV) 4 MG TB24 | mouth. | | | | | + + +--------+---------+ + + | lamoTRIgine | Take 100 mg by mouth | | | | | | (LAMICTAL) 100 MG | 2 (two) times | | | | | | tablet | daily. | | | | | + + +--------+---------+ + + | meloxicam (MOBIC) | | | | 01/17/20 | | | 15 MG tablet | | | | 18 | | + + +--------+---------+ + + as of this encounter Progress Notes Bette Apodaca RN - 03/28/2018 10:56 AM PDTPt ready for discharge. Will see neurologist darron navas in the afternoon today. Friend providing tx home ALEXANDRE Candelaria Corryn, RN - 03/28/2018 10:40 AM PDTOk for pt to get hydrocodone to help with pain . Pt reports feeling better when lying down. Pt. Is tolerating po well. Pt updated on new or ders and plan. ALEXANDRE Candelaria Corryn, RN - 03/28/2018 10:30 AM PDTPt reports bad headache and is tearful post pr ocedure. Pt. Is sitting up in bed and requesting pain medicine before being discharged. Call placed to Dr. Armstrong (who performed lp). Pt. Educated on lying down to help with headache as well as drinking lots of fluids. Coffee also provided for pt.. Patient cms unchanged, site c/d/i. Will wait for call back from on how to proceed. Bette Apodaca RN in this encounter Plan of Treatment +--------+ + + + + | Date | Type | Specialty | Care Team | Description | +--------+ + + + + | 05/22/ | Office | Neurology | Ary Beebe, | | | 2018 | Visit | | MD Harvey Jamison | | | | | | Dr [place] | | | | | | [id number] | | | | | | | | +--------+ + + + + | 06/06/ | Procedure | Plastic Surgery | Larisa Carpenter | | | 2017 | visit | | [address] | | | | | | [address] | | | | | | [place] [address] | | | | | | [phone] | | | | | | | | +--------+ + + + + as of this encounter Procedures + +--------+ + + + | Procedure Name | Priori | Date/Time | Associated Diagnosis | Comments | | | ty | | | | + +--------+ + + + | XR LUMBAR PUNCTURE | Routin | 03/28/2018 | Pseudotumor | Results for this | | DIAGNOSTIC | e | 10:23 AM | cerebri | procedure are in the | | | | PDT | | results section. | + +--------+ + + + | APTT | STAT | 03/28/2018 | | Results for this | | | | 8:32 AM | | procedure are in the | | | | PDT | | results section. | + +--------+ + + + | PROTIME-INR | STAT | 03/28/2018 | | Results for this | | | | 8:32 AM | | procedure are in the | | | | PDT | | results section. | + +--------+ + + + | CBC W/AUTO DIFF | STAT | 03/28/2018 | | Results for this | | (REFLEX TO MANUAL) | | 8:32 AM | | procedure are in the | | | | PDT | | results section. | + +--------+ + + + in this encounter Results X-ray lumbar puncture diagnostic [...] Rad Results In - 03/28/2018 12:01 PM PDT CONCEPCION LEONARD LUMBAR PUNCTURE | | [id number]/9/2018 10:23 AMHISTORY:27 years. Female. Pseudotumor | | [...] to the patient. Specifically, I informed the cinthya yañez not to perform any strenuous activity or heavy lifting for the next 24 hours. The rosemary singleton was also instructed to call | |the [...] | + + + + + | [facility] | [address] | [place] [address] | | + + + + + CBC W/Auto Diff (Reflex to Manual) (03/28/2018 8:32 AM) + + + + + | Component | Value | Ref Range | Performed At | + + + + + | WBC | 11.33 (H) | 3.80 - 11.00 K/uL | [facility] | + + + + + | RBC | 4.69 | 3.70 - 5.10 M/uL | [facility] | + + + + + | HGB | 15.1 | 11.3 - 15.5 g/dL | [facility] | + + + + + | HCT | 44.0 | 34.0 - 46.0 % | [facility] | + + + + + | MCV | 93.8 | 80.0 - 100.0 fl | [facility] | + + + + + | MCH | 32.2 | 27.0 - 34.0 pg | [facility] | + + + + + | MCHC | 34.3 | 32.0 - 35.5 g/dL | [facility] | + + + + + | RDW SD | 43.3 | 37 - 53 fl | [facility] | + + + + + | PLT | 247 | 150 - 400 K/uL | [facility] | + + + + + | MPV | 7.5 | fl | [facility] | + + + + + | DIFF TYPE | AUTOMATED | | [facility] | + + + + + | NEUTROPHILS | 64.88 | % | [facility] | + + + + + | LYMPHOCYTES | 24.73 | % | [facility] | + + + + + | MONOCYTES | 7.35 | % | [facility] | + + + + + | EOSINOPHILS | 1.68 | % | [facility] | + + + + + | BASOPHILS | 1.36 | % | [facility] | + + + + + | NEUTROPHILS ABS | 7.35 | 1.90 - 7.40 K/uL | [facility] | + + + + + | LYMPHOCYTES ABS | 2.80 | 1.00 - 3.90 K/uL | [facility] | + + + + + | MONOCYTES ABS | 0.83 (H) | 0.00 - 0.80 K/uL | [facility] | + + + + + | EOSINOPHILS ABS | 0.19 | 0.00 - 0.50 K/uL | [facility] | + + + + + | BASOPHILS ABS | 0.15 (H)Comment: Testing | 0.00 - 0.10 K/uL | [facility] | | | performed at [facility];[address] | | | | | [address];[place] | | | | | [address] | | | + + + + + + + | Specimen | + + | Blood | + + + + + + + | Performing | Address | City/State/Zipcode | Phone Number | | Organization | | | | + + + + + | [facility] | [address] | [place] [address] | | + + + + + APTT (03/28/2018 8:32 AM) + + + + + | Component | Value | Ref Range | Performed At | + + + + + | APTT | 30Comment: Testing | 23 - 32 seconds | [facility] | | | performed at [facility];[address] | | | | | [address];[place] | | | | | [address] | | | + + + + + + + | Specimen | + + | Blood | + + + + + + + | Performing | Address | City/State/Zipcode | Phone Number | | Organization | | | | + + + + + | [facility] | [address] | [place] [address] | | + + + + + Protime-INR (03/28/2018 8:32 AM) + + + + + | Component | Value | Ref Range | Performed At | + + + + + | INR | 1.0Comment: REFERENCE | | [facility] | | | RANGE:0.9 - | | | | | 1.2 NON-ANTICOAGULATE | | | | | D2.0 - 3.0 ALL OTHER | | | | | THERAPEUTIC | | | | | INDICATIONS2.5 - 3.5 | | | | | MECHANICAL HEART VALVES, | | | | | RECURRENT OR SYSTEMIC | | | | | EMBOLISMTesting | | | | | performed at [facility];[address] | | | | | [address];[place], [place] | | | | | [address] | | | + + + + + + + | Specimen | + + | Blood | + + + + + + + | Performing | Address | City/State/Zipcode | Phone Number | | Organization | | | | + + + + + | [facility] | [address] | [facility] [address] | | + + + + + in this encounter Visit Diagnoses + + | Diagnosis | + + | Pseudotumor cerebri | + + | Benign intracranial hypertension | + + Administered Medications + +--------+ + +------+------+ | Medication Order | MAR | Action | Dose | Rate | Site | | | Action | Date | | | | + +--------+ + +------+------+ | HYDROcodone-acetaminophen | Given | | 1 tablet | | | | (NORCO) 5-325 MG per tablet 1 | | 8 10:53 | | | | | tablet 1 tablet, Oral, STAT - | | PDT | | | | | Now, Parker 03/28/18 at 1100, For 1 | | | | | | | dose | | | | | | + +--------+ + +------+------+ +---+---+ | | | +---+---+ + +-------+ +-------+---+---+ | lidocaine 1 % injection 5 mL 5 | Given | | 5 mLs | | | | mL, Intradermal, Img Once PRN, | | 8 10:18 | | | | | for procedure, Starting Tue | | PDT | | | | | 03/28/18 at 0852, For 1 dose | | | | | | + +-------+ +-------+---+---+ +---+---+ | | | +---+---+ + +---------+ +---+-------+---+ | sodium chloride 0.9 % infusion | New Bag | | | 500 | | | at 500 mL/hr, Intravenous, Once | | 8 08:53 | | mL/hr | | | RT, 03/28/18 at 0930, For 1 | | PDT | | | | | dose, Intra-procedure (CATH/IR) | | | | | | + +---------+ +---+-------+---+ +---+---+ | | | +---+---+ in this encounter"
--- OUTSIDE RECORDS SUMMARY | ~2018-04-21 | XMS | Encounter Summary ---
Demographics + + + | Address | [address] | | | [place] [address] | + + + | Home Phone | | + + + | Preferred Language | Unknown | + + + | Marital Status | Single | + + + | Anglican Affiliation | Unknown | + + + | Race | Unknown | + + + | Ethnic Group | Unknown | + + + Author + + + | Author | [facility] | + + + | Organization [...] Team Providers + +------+ + | Care Motor Lodge Clerk Name | Role | Phone | + +------+ + | Kari Flores PA-C | PCP | | + +------+ + Reason for Visit Consult and Treat (Routine) + +--------+ + + + + | Status | Reason | Specialty | Diagnoses / | Referred By | Referred To | | | | | Procedures | Contact | Contact | + +--------+ + + + + | Pending | | Dermatology / | Diagnoses | Misty Flores Plastic | | Review | | Plastic | Sebaceous | Kari | Surgery [address] | | | | Surgery | cyst | DOM Coker | [place] | | | | | | [address] | Jaylene Mina | | | | | | Justina Sam[address] | [place], [place] | | | | | | [place], | [address] | | | | | | [place] | Phone: | | | | | | [address] | [phone] | | | | | | Phone: | Fax: | | | | | | [phone] | [phone] | | | | | | Fax: | | | | | | | [phone] | | + +--------+ + + + + Encounter Details +--------+---------+ + + + | Date | Type | Department | Care Team | Description | +--------+---------+ + + + | 04/17/ | Office | [facility] | Larisa Carpenter | Neoplasm of | | 2018 | Visit | Plastic 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, RESIDENTIAL PROGRAM WORKER [address] | uncertain behavior | | | | Dermatology [address] | [address] | of skin (Primary Dx) | | | | [address] | [place] [address] | | | | | [place], [place] | [phone] | | | | | [address] | | | | | | [phone] | | | +--------+---------+ + + + [...] + + + | Blood Pressure | - | - | + + + + | Pulse | - | - | + + + + | Temperature | - | - | + + + + | Respiratory Rate | - | - | + + + + | Oxygen Saturation | - | - | + + + + | Inhaled Oxygen | - | - | | Concentration | | | + + + + | Weight | 143.8 kg (317 lb) | 04/17/2018 2:45 PM PDT | + + + + | Height | 162.6 cm (5' 4") | 04/17/2018 2:45 PM PDT | + + + + | Body Mass Index | 54.41 | 04/17/2018 2:45 PM PDT | + + + + in this encounter Plan of Treatment +--------+ + + + + | Date | Type | Specialty | Care Team | Description | +--------+ + + + + | 05/22/ | Office | Neurology | Ary Beebe, | | | 2017 | Visit | | MD Harvey Jamison | | | | | | [place] | | | | | | [id number] | | | | | | | | +--------+ + + + + | 06/06/ | Procedure | Plastic Surgery | Larisa Carpenter | | | 2017 | visit | | [address] | | | | | | [address] | | | | | | [place] [address] | | | | | | [phone] | | | | | | | | +--------+ + + + + as of this encounter Visit Diagnoses + + | Diagnosis | + + | 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
--- OUTSIDE RECORDS SUMMARY | ~2018-04-21 | XMS | Encounter Summary ---
Demographics + + + | Address | [address] | | | [place] [address] | + + + | Home Phone | | + + + | Preferred Language | Unknown | + + + | Marital Status | Single | + + + | Druze Affiliation | Unknown | + + + | Race | Unknown | + + + | Ethnic Group | Unknown | + + + Author + + + | Author | [facility] | + + + | Organization [...] Team Providers + +------+ + | Care Fabricator Foam Rubber Name | Role | Phone | + +------+ + | Kari Flores PA-C | PCP | | + +------+ + Encounter Details +--------+ + + + + | Date | Type | Department | Care Team | Description | +--------+ + + + + | 03/28/ | Hospital | [facility] | Ary Beebe, | Pseudotumor cerebri | | 2018 | Encounter | [facility] | [address] | | | | | [address] | [place] | | | | | [place] [address] | [address] | | | | | [phone] | | | | | | | [...] you may contact the Radiology nurse [phone], ext. [phone] . in this encounter Medications at Time [...] | | | | | Dr [place] | | | | | | [address] | | | | | | | | +--------+ + + + + | 06/06/ | Procedure | Plastic Surgery | Larisa Carpenter | | | 2017 | visit | | [address] | | | | | | [address] | | | | | | [place] [address] | | | | | | [phone] | | | | | | | [...] PDT CONCEPCION LEONARD LUMBAR PUNCTURE | | [id number]/9/2018 10:23 AMHISTORY:27 years. Female. Pseudotumor | | [...] [facility] | [address] | [place] [address] | | + + + + + CBC W/Auto Diff (Reflex to Manual) (03/28/2018 8:32 AM) + + + + + | Component | Value | Ref Range | Performed At | + + + + + | WBC | 11.33 (H) | 3.80 - 11.00 K/uL | [facility] | + + + + + | RBC | 4.69 | 3.70 - 5.10 M/uL | [facility] | + + + + + | HGB | 15.1 | 11.3 - 15.5 g/dL | [facility] | + + + + + | HCT | 44.0 | 34.0 - 46.0 % | [facility] | + + + + + | MCV | 93.8 | 80.0 - 100.0 fl | [facility] | + + + + + | MCH | 32.2 | 27.0 - 34.0 pg | [facility] | + + + + + | MCHC | 34.3 | 32.0 - 35.5 g/dL | [facility] | + + + + + | RDW SD | 43.3 | 37 - 53 fl | [facility] | + + + + + | PLT | 247 | 150 - 400 K/uL | [facility] | + + + + + | MPV | 7.5 | fl | [facility] | + + + + + | DIFF TYPE | AUTOMATED | | [facility] | + + + + + [...] 7.35 | 1.90 - 7.40 K/uL | [facility] | + + + + + | LYMPHOCYTES ABS | 2.80 | 1.00 - 3.90 K/uL | [facility] | + + + + + | MONOCYTES ABS | 0.83 (H) | 0.00 - 0.80 K/uL | [facility] | + + + + + | EOSINOPHILS ABS | 0.19 | 0.00 - 0.50 K/uL | [facility] | + + + + + | BASOPHILS ABS | 0.15 (H)Comment: Testing | 0.00 - 0.10 K/uL | [facility] | | | performed at [facility];[address] | | | | | [address];[place] | | | | | [address] | | | + + + + + + + | Specimen | + + | Blood | + + + + + + + | Performing | Address | City/State/Zipcode | Phone Number | | Organization | | | | + + + + + | [facility] | [address] | [place] [address] | | + + + + + APTT (03/28/2018 8:32 AM) + + + + + | Component | Value | Ref Range | Performed At | + + + + + | APTT | 30Comment: Testing | 23 - 32 seconds | [facility] | | | performed at [facility];[address] | | | | | [address];[place] | | | | | [address] | | | + + + + + + + | Specimen | + + | Blood | + + + + + + + | Performing | Address | City/State/Zipcode | Phone Number | | Organization | | | | + + + + + | [facility] | [address] | [place] [address] | | + + + + + Protime-INR (03/28/2018 8:32 AM) + + + + + | Component | Value | Ref Range | Performed At | + + + + + | INR | 1.0Comment: REFERENCE | | [facility] | | | RANGE:0.9 - | [...] | | | | | performed at [facility];[address] | | | | | [address];[place], [place] | | | | | [address] | | | + + + + + + + | Specimen | + + | Blood | + + + + + + + | Performing | Address | City/State/Zipcode | Phone Number | | Organization | | | | + + + + + | [facility] | [address] | [facility] [place] [address] | | + + + + + [...]
--- OUTSIDE RECORDS SUMMARY | ~2018-04-21 | XMS | Encounter Summary ---
Demographics + + + | Address | [address] | | | [place] [address] | + + + | Home Phone | | + + + | Preferred Language | Unknown | + + + | Marital Status | Single | + + + | Yazidi Affiliation | Unknown | + + + | Race | Unknown | + + + | Ethnic Group | Unknown | + + + Author + + + | Author | [facility] | + + + | Organization [...] | + + +---------+ + | Amy Scanoln | ECON | Unknown | | + + +---------+ + Care Team Providers + +------+ + | Care Elevator Adjuster Name | Role | Phone | + +------+ + | Kari Flores PA-C | PCP | | + +------+ + Encounter Details +--------+ + + + + | Date | Type | Department | Care Team | Description | +--------+ + + + + | 02/09/ | Documentati | [place] | Ary Beebe, | | | 2018 | on Only | [facility] | [address] | | | | | [address] | [place] | | | | | [place] | [address] | | | | | [address] | | | | | | [phone] | | | +--------+ + + + + Social History + +-------+ +--------+------+ | Tobacco Use | Types | Packs/Day | Years | Date | | | | | Used | | + +-------+ +--------+------+ | Never Assessed | | | | | + +-------+ +--------+------+ + + + | Sex Assigned at [...] [place] | | | | | | [address] | | | | | | | | +--------+ + + + + | 06/06/ | Procedure | Plastic Surgery | Larisa Carpenter | | | 2017 | visit | | [address] | | | | | | [address] | | | | | | [place] [address] | | | | | | [phone] | | | | | | | | +--------+ + + + + as of this encounter Visit Diagnoses Not on filein this encounter"
--- OUTSIDE RECORDS SUMMARY | ~2018-04-21 | XMS | Encounter Summary ---
Demographics + + + | Address | [address] | | | [place] [address] | + + + | Home Phone [...] + + + | Author | [employer] | + + + | Organization [...] Team Providers + +------+ + | Care Rubber Press Operator Name | Role | Phone | + [...] | Radiology | Diagnoses | Concepción | [facility] | | | | | Pseudotumor | MD Ary | [address] | | | | | cerebri | [address] | | | | | Procedures | Shaheen Mina | [place], [place] | | | | | CT head | [place], | [address] Phone: | | | | | without | [place] [address] | [phone] | | | | | contrast | Phone: | | | | | | | [phone] | | | | | | | Fax: | | | | | | | [phone] | | +--------+--------+ + + + + MRI/CAT Scan (Routine) +--------+--------+ + + + + | Status | Reason | Specialty | Diagnoses / | Referred By | Referred To | | | | | Procedures | Contact | Contact | +--------+--------+ + + + + | Closed | | Radiology | Diagnoses | Concepción | [facility] | | | | | Pseudotumor | MD Ary | [address] | | | | | cerebri | [address] | | | | | Procedures | Shaheen Mina | [place], [place] | | | | | CT head | [place], | [address] Phone: | | | | | without | [place] [address] | [phone] | | | | | contrast | Phone: | | | | | | | [phone] | | | | | | | Fax: | | | | | | | [phone] | | +--------+--------+ + + + + Reason for Visit MRI/CAT Scan (Routine) +--------+--------+ + + + + | Status | Reason | Specialty | Diagnoses / | Referred By | Referred To | | | | | Procedures | Contact | Contact | +--------+--------+ + + + + | Closed | | Radiology | Diagnoses | Concepción, | [facility] | | | | | Pseudotumor | MD Ary | [address] | | | | | cerebri | [address] | | | | | Procedures | Shaheen Mina | [place], [place] | | | | | CT head | [place], | [address] Phone: | | | | | without | [place] [address] | [phone] | | | | | contrast | Phone: | | | | | | | [phone] | | | | | | | Fax: | | | | | | | [phone] | | +--------+--------+ + + + + Encounter Details +--------+ + + + + | Date | Type | Department | Care Team | Description | +--------+ + + + + | 03/28/ | [facility] | [facility] | Ary Beebe, | Pseudotumor cerebri | | 2018 | Encounter | [facility] | [address] | | | | | [address] | [place] | | | | | [place] [address] | [phone] | | | | | [phone] | | | +--------+ + + + [...] + + + as of this encounter Medications at Time of Discharge [...] +--------+---------+ + + as of this encounter Plan [...] [place] | | | | | | [address] | | | | | | | | +--------+ + + + + | 06/06/ | Procedure | Plastic Surgery | Larisa Carpenter | | | 2017 | visit | | [address] | | | | | | [address] | | | | | | [place] [address] | | | | | | [phone] | | | | | | | | +--------+ + + + + as of this encounter Procedures + +--------+ + + + | Procedure Name | Priori | Date/Time | Associated Diagnosis | Comments | | | ty | | | | + +--------+ + + + | CT HEAD WO CONTRAST | Routin | 03/28/2018 | Pseudotumor | Results for this | | | e | 8:10 AM | cerebri | procedure are in the | | | | PDT | | results section. | + +--------+ + + + in this encounter Results CT head without contrast [...] WO CONTRAST 03/28/2018 8:10 AM HISTORY: | [facility] | | 27 years. Female. Pseudotumor cerebri. [...] | Procedure Note | + + | Addison Hanna Results In - 03/28/2018 8:23 AM PDT CONCEPCION ALBA HEAD WO | | [id number]/9/2018 8:10 AMHISTORY:27 years. Female. Pseudotumor cerebri.TECHNIQUE:5-mm | [...] | + + + + + | [facility] | [address] | [place] [place] [address] | | + + + + + in this encounter Visit Diagnoses + + | Diagnosis | + + | Pseudotumor cerebri | + + | Benign intracranial hypertension | + +"
--- OUTSIDE RECORDS SUMMARY | ~2018-04-21 | XMS | Encounter Summary ---
Demographics + + + | Address | [address] | | | [place] [address] | + + + | Home Phone | | + + + | Preferred Language | Unknown | + + + | Marital Status | Single | + + + | Judaism Affiliation | Unknown | + + + | Race | Unknown | + + + | Ethnic Group | Unknown | + + + Author + + + | Author | [employer] | + + + | Organization | [facility] | + + + | Address | Unknown | + + + | Phone | Unavailable | + + + Support + + +---------+ + | Name | Relationship | Address | Phone | + + +---------+ + | iNco Romero | ECON | Unknown | | + + +---------+ + | Amy Scanlon | ECON | Unknown | | + + +---------+ + Care Team Providers + +------+ + | Care Health Program Specialist Name | Role | Phone | + +------+ + | Kari Flores PA-C | PCP | | + +------+ + Encounter Details +--------+ + + + + | Date | Type | Department | Care Team | Description | +--------+ + + + + | 03/28/ | Lab | [facility] | Jose Hidalgo, | Pseudotumor cerebri | | 2018 | Requisition | [address] | Crisis Nurse | | | | | [place] [address] | | | | | | [phone] | | | +--------+ + + + [...] [place] | | | | | | [address] | | | | | | | | +--------+ + + + + | 06/06/ | Procedure | Plastic Surgery | Larisa Carpenter | | | 2018 | lashonda | | [address] | | | | | | [address] | | | | | | [place] [address] | | | | | | [phone] | | | | | | | | +--------+ + + + + as of this encounter Procedures + +--------+ + + + | Procedure Name | Priori | Date/Time | Associated Diagnosis | Comments | | | ty | | | | + +--------+ + + + | CSF CELL COUNT WITH | Routin | 03/28/2018 | Pseudotumor | Results for this | | DIFFERENTIAL | e | 10:20 AM | cerebri | procedure are in the | | | | PDT | | results section. | + +--------+ + + + | PROTEIN, CSF | Routin | 03/28/2018 | Pseudotumor | Results for this | | | e | 10:20 AM | cerebri | procedure are in the | | | | PDT | | results section. | + +--------+ + + + | GLUCOSE, CSF | Routin | 03/28/2018 | Pseudotumor | Results for this | | | e | 10:20 AM | cerebri | procedure are in the | | | | PDT | | results section. | + +--------+ + + + in this encounter Results Protein, CSF (03/28/2018 10:20 AM) + +-------+ + + | Component | Value | Ref Range | Performed At | + +-------+ + + | CSF TOTAL PROTEIN | 24 | 15 - 45 mg/dL | [facility] | + +-------+ + + + + | Specimen | + + | Cerebrospinal Fluid | | - CSF | + + + + + + + | Performing | Address | City/State/Zipcode | Phone Number | | Organization | | | | + + + + + | [facility] | [address] | [place] [address] | | + + + + + Glucose, CSF (03/28/2018 10:20 AM) + +-------+ + + | Component | Value | Ref Range | Performed At | + +-------+ + + | CSF GLUCOSE | 58 | 45 - 90 mg/dL | [facility] | + +-------+ + + + + | Specimen | + + | Cerebrospinal Fluid | | - Lumbar Puncture | + + + + + + + | Performing | Address | City/State/Zipcode | Phone Number | | Organization | | | | + + + + + | [facility] | [address] | [place] [address] | | + + + + + CSF Cell Count With Differential (03/28/2018 10:20 AM) + + + + + | Component | Value | Ref Range | Performed At | + + + + + | COLOR | COLORLESS | | [facility] | + + + + + | APPEARANCE | CLEAR | | [facility] | + + + + + | Tube Number, CSF | 3 | | [facility] | + + + + + | CSF RBC | 150 (H) | 0 /uL | [facility] | + + + + + | CSF WBC | 0 | 0 - 5 /uL | [facility] | + + + + + + + | Specimen | + + | Cerebrospinal Fluid | | - CSF | + + + + + + + | Performing | Address | City/State/Zipcode | Phone Number | | Organization | | | | + + + + + | [facility] | [address] | [place] [address] | | + + + + + in this encounter Visit Diagnoses + + | Diagnosis | + + | Pseudotumor cerebri | + + | Benign intracranial hypertension | + +"
--- OUTSIDE RECORDS SUMMARY | ~2018-04-21 | XMS | Encounter Summary ---
Demographics + + + | Address | [address] | | | [place] [address] | + + + | Home Phone | | + + + | Preferred Language | Unknown | + + + | Marital Status | Single | + + + | Gnosticist Affiliation | Unknown | + + + | Race | Unknown | + + + | Ethnic Group | Unknown | + + + Author + + + | Author | [facility] [employer] | + + + | Organization [...] Team Providers + +------+ + | Care Battery Mechanic Name | Role | Phone | + +------+ + | Kari Flores PA-C | PCP | | + +------+ + Encounter Details +--------+ + + + + | Date | Type | Department | Care Team | Description | +--------+ + + + + | 02/16/ | Lab | [facility] | Rian Cyr, | Pseudotumor cerebri | | 2017 | Requisition | [address] | Director Engineering | | | | | [place] [address] | | | | | | [phone] | | | +--------+ + + + [...] [place] | | | | | | [id number] | | | | | | | | +--------+ + + + + | 06/06/ | Procedure | Plastic Surgery | JaydenKby | | | 2018 | [place]ash[place] | | [address] | | | | | | [address] | | | | | | [place] [address] | | | | | | [phone] | | | | | | | | +--------+ + + + + as of this encounter Procedures + +--------+ + + + | Procedure Name | Priori | Date/Time | Associated Diagnosis | Comments | | | ty | | | | + +--------+ + + + | CBC W/AUTO DIFF | Routin | 02/16/2018 | Pseudotumor | Results for this | | (REFLEX TO MANUAL) | e | 11:17 AM | cerebri | procedure are in the | | | | PDT | | results section. | + +--------+ + + + | TSH | Routin | 02/16/2018 | Pseudotumor | Results for this | | | e | 11:17 AM | cerebri | procedure are in the | | | | PDT | | results section. | + +--------+ + + + | COMPREHENSIVE | Routin | 02/16/2018 | Pseudotumor | Results for this | | METABOLIC PANEL | e | 11:17 AM | cerebri | procedure are in the | | | | PDT | | results section. | + +--------+ + + + in this encounter Results Comprehensive metabolic panel (02/16/2018 11:17 AM) + [...] 92 | 35 - 115 U/L | [facility] | | | | | LABORATORY | + + + + + | AST | 17 | 10 - 45 U/L | [facility] | | | | | [facility]ORY | + + + + + | ALT | 30 | 10 - 65 U/L | [facility] | | | | | LABORATORY | + + + + + | EGFR | >60Comment: GFR <60: | >60 mL/min/1.73_m2 | [facility] | | | CHRONIC KIDNEY DISEASE, | [...] | | | | using the MDRD IDMS | | | | | traceable equation. | | | + + + + + + + | Specimen | + + | Blood | + + + + + + + | Performing | Address | City/State/Zipcode | Phone Number | | Organization | | | | + + + + + | [facility] | [address] | [place] [address] | [phone] | | LABORATORY | [place]. | | | + + + + [...] + + + | [facility] | [address] | [place] [address] | [phone] | | LABORATORY | [address]vd[address] | | [...] + + + | [facility] | [address] | [place] [address] | [phone] | | LABORATORY | Blvd[address] | | | + + + + + in this encounter Visit Diagnoses + + | Diagnosis | + + | Pseudotumor cerebri | + + | Benign intracranial hypertension | + +"
--- OUTSIDE RECORDS SUMMARY | ~2018-04-21 | XMS | Encounter Summary ---
Demographics + + + | Address | [address] | | | [place] [address] | + + + | Home Phone [...] + + + | Author | [employer] | + + + | Organization [...] Team Providers + +------+ + | Care Sr. Payroll Manager Name | Role | Phone | + [...] | Radiology | Diagnoses | Concepción | [facility] [address] | | | | | Pseudotumor | MD Ary | [address] | | | | | cerebri | [address] | | | | | Procedures | Shaheen Mina | [place], [place] | | | | | CT head | [place], | [address] Phone: | | | | | without | [place] [address] | [phone] | | | | | contrast | Phone: | | | | | | | [phone] | | | | | | | Fax: | | | | | | | [phone] | | +--------+--------+ + + + + Encounter Details +--------+ + + + + | Date | Type | Department | Care Team | Description | +--------+ + + + + | 02/21/ | Telephone | [facility] | Patti, | | | 2017 | | [facility] [place] | AIDAN Lafleur | | | | | [address] | | | | | | [place] | | | | | | [address] | | | | | | [phone] | | | +--------+ + + + [...] | | | | | [place] [address] | | | | | | [phone] | | | | | | | [...] CONCEPCION J FERRISCT HEAD WO | | [id number]/9/2018 8:10 AMHISTORY:27 years. Female. Pseudotumor cerebri.TECHNIQUE:5-mm | [...] [facility] | [address] | [place] [address] | | + + + + + in this encounter Visit Diagnoses + + | Diagnosis | + + | Pseudotumor cerebri - Primary | + + | Benign intracranial hypertension | + +"
--- OUTSIDE RECORDS SUMMARY | ~2018-04-21 | XMS | Encounter Summary ---
Demographics + + + | Address | [address] | | | [place] [address] | + + + | Home Phone | | + + + | Preferred Language | Unknown | + + + | Marital Status | Single | + + + | Church Affiliation | Unknown | + + + | Race | Unknown | + + + | Ethnic Group | Unknown | + + + Author + + + | Author | [facility] [employer] | + + + | Organization [...] Team Providers + +------+ + | Care Fisher Lobster Name | Role | Phone | + [...] | | hypertension | [address] | [place], [place] | | | | | | [place], | [address] Phone: | | | | | | [place] | [phone] | | | | | | [address] | Fax: | | | | | | Phone: | [phone] | | | | | | [phone] | | | | | | | Fax: | | | | | | | [phone] | | + +--------+ + + + + Encounter Details +--------+---------+ + + + | Date | Type | Department | Care Team | Description | +--------+---------+ + + + | 10/09/ | Office | [facility] | Ary Beebe, | 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 You will need visual eng and [...] Kiarra is a 27 yo lady [place], [place] with h/o pseudotumor cerebri, morbid obesity, h/o [...] and get a referral to a local dermatology nurse or seat cover installer - Visual eng and optical coherence tomography [...] [place] | | | | | | [address] | | | | | | | | +--------+ + + + + | 06/06/ | Procedure | Plastic Surgery | Larisa Carpenter | | | 2017 | visit | | [address] | | | | | | [facility] | | | | | | [place] [address] | | | | | | [phone] | | | | | | | [...]
--- OUTSIDE RECORDS SUMMARY | ~2018-04-21 | XMS | Clinical Summary ---
Demographics + + + | Address | [address] | | | [place] [address] | + + + | Home Phone | | + + + | Preferred Language | Unknown | + + + | Marital Status | Single | + + + | Amish Affiliation | Unknown | + + + | Race | Unknown | + + + | Ethnic Group | Unknown | + + + Author + + + | Author | [facility] [employer] | + + + | Organization [...] Team Providers + +------+ + | Care Salesperson Burial Plots Name | Role | Phone | + +------+ + | Kari Flores PA-C | PP | | + +------+ [...] + + + Current Medications + + +--------+---------+------+------+-------+ | Prescription | Sig. | Disp. | Refills | Star | End | Statu | | | | | | t | Date | s | | | | | | Date | | | + + +--------+---------+------+------+-------+ | meloxicam (MOBIC) | | | | 07/3 | | Activ | | 15 MG tablet | | | | 0/20 | | e | | | | | | 18 | | | + + +--------+---------+------+------+-------+ | lamoTRIgine | Take 100 mg by mouth | | | | | Activ | | (LAMICTAL) 100 MG | 2 (two) times | | | | | e | | tablet | daily. | | | | | | + + +--------+---------+------+------+-------+ | escitalopram | Take 20 mg by mouth | | | | | Activ | | (LEXAPRO) 20 MG | daily. | | | | | e | | tablet | | | | | | | + + +--------+---------+------+------+-------+ | Etonogestrel | Inject into the | | | 10/0 | | Activ | | (IMPLANON SC) | skin. | | | /20 | | e | | | | | | 16 | | | + + +--------+---------+------+------+-------+ | GuanFACINE HCl | Take 1 tablet by | | | | | Activ | | (INTUNIV) 4 MG TB24 | mouth. | | | | | e | + + +--------+---------+------+------+-------+ | acetaZOLAMIDE | Take 1 tablet by | 90 | 5 | 10/0 | 11/0 | Activ | | (DIAMOX) 250 MG | mouth 3 (three) | tablet | | /20 | 8/20 | e | | tabletIndications: | times daily for 30 | | | 18 | 18 | | | IIH (idiopathic | days. | | | | | | | intracranial | | | | | | | | hypertension) | | | | | | | + + +--------+---------+------+------+-------+ | gabapentin | | | | 10/ | | Activ | | (NEURONTIN) 100 MG | | | | 07/09 | | e | | capsule | | | | 18 | | | + + +--------+---------+------+------+-------+ | penicillin v | | | | 01/19 | 10/0 | Disco | | potassium (VEETID) | | | | 03/09 | 03/09 | ntinu | | 500 MG tablet | | | | 18 | 18 | ed | + + +--------+---------+------+------+-------+ Active Problems + + + | Problem | Noted Date | + + + | Pseudotumor cerebri | 02/17/2018 | + + + | Tension headache | 02/17/2018 | + + + Encounters +--------+ + + + + | Date | Type | Specialty | Care Team | Description | +--------+ + + + + | 04/17/ | Office | | Larisa Carpenter | Neoplasm of | | 2017 | Visit | | [facility] Gunter | uncertain behavior | | | | | | of skin (Primary Dx) | +--------+ + + + + | 03/28/ | Office | | Ary Beebe, | IIH (idiopathic | | 2017 | Visit | | | intracranial | | | | | | hypertension) | | | | | | (Primary Dx); | | | | | | Tension headache; | | | | | | Morbid obesity with | | | | | | BMI of 50.0-59.9, | | | | | | adult (HCC) | +--------+ + + + + | 03/28/ | Hospital | | Ary Beebe, | Pseudotumor cerebri | | 2017 | Encounter | | Amanda ACOSTA Nurse | | | | | | Imaging, [facility] Field Evidence Technician | | +--------+ + + + + | 03/28/ | Hospital | | Ary Beebe, | Pseudotumor cerebri | | 2017 | Encounter | | MD | | +--------+ + + + + | 03/28/ | Lab | | Jose Hidalgo, | Pseudotumor cerebri | | 2017 | Requisition | | Excellence Manager | | +--------+ + + + + | 02/21/ | Telephone | | Patti, | | | 2017 | | | Ciarra, STATISTICS INTERN | | +--------+ + + + + | 02/16/ | Office | | Ary Beebe, | Pseudotumor cerebri | | 2017 | Visit | | MD | (Primary Dx); | | | | | | Tension headache | +--------+ + + + + | 02/16/ | Lab | | Rian Cyr, | Pseudotumor cerebri | | 2018 | Requisition | | Excellence Manager | | +--------+ + + + + | 02/09/ | Documentati | | Ary Beebe, | | | 2018 | on Only | | MD | | +--------+ + + + + [...] PM PDT | + + + + Plan of Treatment +--------+ + + + + | Date | Type | Specialty | Care Team | Description | +--------+ + + + + | 05/22/ | Office | | Ary Beebe, | | | 2017 | Visit | | MD Harvey Jamison | | | | | | [place] | | | | | | [address] | | | | | | | | +--------+ + + + + | 06/06/ | Procedure | | Larisa Carpenter | | | 2017 | visit | | [address] [address] | | | | | | [address] | | | | | | [place] [address] | | | | | | [phone] | | | | | | | | +--------+ + + + + + + + [...] Vaccine: Influenza | | | | | (#1) | 8 | | | + + + + + | Cervical Cancer | | | | | Screening (Pap) | 8 | | | + + + + + Procedures + +--------+ + + + | [...] section. | + +--------+ + + + from Last 3 Months Results X-ray lumbar puncture diagnostic (03/28/2018 10:23 [...] LUMBAR PUNCTURE DIAGNOSTIC 03/28/2018 10:23 AM | [facility] | | HISTORY: 27 years. Female. Pseudotumor [...] PM MARINA LEONARD LUMBAR PUNCTURE | | [id number]/9/2018 10:23 AMHISTORY:27 years. Female. Pseudotumor | | [...] + + + + + | [facility] | [address] | [place] [address] | | + + + + + [...] | + + + + + | [facility] | [address] | [place] [address] | | + + + + + Protein, CSF (03/28/2018 10:20 AM) + +-------+ + + | Component | Value | Ref Range | Performed At | + +-------+ + + | CSF TOTAL PROTEIN | 24 | 15 - 45 mg/dL | [facility] | + +-------+ + + + + | Specimen | + + | Cerebrospinal Fluid | | - CSF | + + + + + + + | Performing | Address | City/State/Zipcode | Phone Number | | Organization | | | | + + + + + | [facility] | [address] | [place] [address] | | + + + + + Glucose, CSF (03/28/2018 10:20 AM) + +-------+ + + | Component | Value | Ref Range | Performed At | + +-------+ + + | CSF GLUCOSE | 58 | 45 - 90 mg/dL | [facility] | + +-------+ + + + + | Specimen | + + | Cerebrospinal Fluid | | - Lumbar Puncture | + + + + + + + | Performing | Address | City/State/Zipcode | Phone Number | | Organization | | | | + + + + + | [facility] | [address] | [place] [address] | | + + + + + APTT (03/28/2018 8:32 AM) + + + + + | Component | Value | Ref Range | Performed At | + + + + + | APTT | 30Comment: Testing | 23 - 32 seconds | [facility] | | | performed at [facility];[address] | | | | | [address] [facility];[place], [place] | | | | | [address] | | | + + + + + + + | Specimen | + + | Blood | + + + + + + + | Performing | Address | City/State/Zipcode | Phone Number | | Organization | | | | + + + + + | [facility] | [address] | [place] [address] | | + + + + + Protime-INR (03/28/2018 8:32 AM) + + + + + | Component | Value | Ref Range | Performed At | + + + + + | INR | 1.0Comment: REFERENCE | | [facility] | | | RANGE:0.9 - | [...] | | | | | performed at [facility] | | | | | [address] [facility];[place], [place] | | | | | [address] | | | + + + + + + + | Specimen | + + | Blood | + + + + + + + | Performing | Address | City/State/Zipcode | Phone Number | | Organization | | | | + + + + + | [facility] | [address] | [place] [address] | | + + + + + CBC W/Auto Diff (Reflex to Manual) (03/28/2018 8:32 AM)Only the most recent of 2 results w jenin the time period is included. + + + + + | Component | Value | Ref Range | Performed At | + + + + + | WBC | 11.33 (H) | 3.80 - 11.00 K/uL | [facility] | + + + + + | RBC | 4.69 | 3.70 - 5.10 M/uL | [facility] | + + + + + | HGB | 15.1 | 11.3 - 15.5 g/dL | [facility] | + + + + + | HCT | 44.0 | 34.0 - 46.0 % | [facility] | + + + + + | MCV | 93.8 | 80.0 - 100.0 fl | [facility] | + + + + + | MCH | 32.2 | 27.0 - 34.0 pg | [facility] | + + + + + | MCHC | 34.3 | 32.0 - 35.5 g/dL | [facility] | + + + + + | RDW SD | 43.3 | 37 - 53 fl | [facility] | + + + + + | PLT | 247 | 150 - 400 K/uL | [facility] | + + + + + | MPV | 7.5 | fl | [facility] | + + + + + | DIFF TYPE | AUTOMATED | | [facility] | + + + + + [...] 7.35 | 1.90 - 7.40 K/uL | [facility] | + + + + + | LYMPHOCYTES ABS | 2.80 | 1.00 - 3.90 K/uL | [facility] | + + + + + | MONOCYTES ABS | 0.83 (H) | 0.00 - 0.80 K/uL | [facility] | + + + + + | EOSINOPHILS ABS | 0.19 | 0.00 - 0.50 K/uL | [facility] | + + + + + | BASOPHILS ABS | 0.15 (H)Comment: Testing | 0.00 - 0.10 K/uL | [facility] | | | performed at [facility];[address] | | | | | [address];[place] | | | | | [address] | | | + + + + + + + | Specimen | + + | Blood | + + + + + + + | Performing | Address | City/State/Zipcode | Phone Number | | Organization | | | | + + + + + | [facility] | [address] | [place] [address] | | + + + + + CT head without contrast (03/28/2018 8:10 AM) [...] CONCEPCION J FERRISCT HEAD WO | | [id number]/9/2018 8:10 AMHISTORY:27 years. Female. Pseudotumor cerebri.TECHNIQUE:5-mm | [...] | + + + + + | [facility] | [address] | [place] [address] | | + + + + + [...] + + + + | [facility] | [address] | [place] [address] | [phone] | | LABORATORY | Blvd. | | [...] 25 | 23 - 32 mmol/L | [facility] | | | | | [facility]ORAT[facility] | [...] | 1.0 | 1.0 - 2.4 | [facility] | | | | | [facility] | [...] + + + | [facility] | [address] | [place] [address] | [phone] | | LABORATORY | Blvd. | | | + + + + + from Last 3 Months Insurance + +--------+ +------+-------+ + | Payer | Benefi | Subscriber | Type | Phone | Address | | | t Plan | ID | | | | | | / | | | | | | | Group | | | | | + +--------+ +------+-------+ + | MEDICAID | [employer] | [id number] | | | [address] | | | N | | | | [place], [place] | | | [place] | | | | [address] | | | [employer]IC | | | | | + +--------+ [...] | Self [birth year] Home: | [address] | | | al/Fam | | 1989 | [phone] | [address] [place] | | | [place] | | | [phone] | + +--------+ +--------+ + +
--- OUTSIDE RECORDS SUMMARY | ~2018-04-21 | XMS | Encounter Summary ---
Demographics + + + | Address | [address] | | | [place] [address] | + + + | Home Phone | | + + + | Preferred Language | Unknown | + + + | Marital Status | Single | + + + | Presybeterian Affiliation | Unknown | + + + | Race | Unknown | + + + | Ethnic Group | Unknown | + + + Author + + + | Author | [facility] [employer] | + + + | Organization [...] Team Providers + +------+ + | Care Movie Theater Manager Name | Role | Phone | [...] Surgery | cyst | DOM Coker | [place] | | | | | | [address] | Jaylene Mina | | | | | | [address] | [place], [place] | | | | | | [place], | [address] | | | | | | [place] | Phone: | | | | | | [address] | [phone] | | | | | | Phone: | Fax: | | | | | | [phone] | [phone] | | | | | | Fax: | | | | | | | [phone] | | + +--------+ + + + + Encounter Details +--------+---------+ + + + | Date | Type | Department | Care Team | Description | +--------+---------+ + + + | 04/17/ | Office | [facility] | Larisa Carpenter | Neoplasm of | | 2018 | Visit | Plastic 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, RETAIL SUPPORT MANAGER [address] | uncertain behavior | | | | Dermatology [address] | [address] | of skin (Primary Dx) | | | | [address] | [place] [address] | | | | | [place], [place] | [phone] | | | | | [address] | | | | | | [phone] | | | +--------+---------+ + + + [...] [place] | | | | | | [id number] | | | | | | | | +--------+ + + + + | 06/06/ | Procedure | Plastic Surgery | Larisa Carpenter | | | 2017 | visit | | [address] | | | | | | [address] | | | | | | [place] [address] | | | | | | [phone] | | | | | | | | +--------+ + + + + as of this encounter Visit Diagnoses + + | Diagnosis | + + | 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
--- OUTSIDE RECORDS SUMMARY | ~2018-04-21 | XMS | Encounter Summary ---
Demographics + + + | Address | [address] | | | [place] [address] | + + + | Home Phone | | + + + | Preferred Language | Unknown | + + + | Marital Status | Single | + + + | Buddhism Affiliation | Unknown | + + + | Race | Unknown | + + + | Ethnic Group | Unknown | + + + Author + + + | Author | [facility] [employer] | + + + | Organization [...] Team Providers + +------+ + | Care Independent Producer Name | Role | Phone | + [...] | [address] | | | | | [address] | | | | | | [phone] | | | +--------+ + + + [...] [place] | | | | | | [address] | | | | | | | | +--------+ + + + + | 06/06/ | Procedure | Plastic Surgery | Larisa Carpenter | | | 2017 | visit | | [facility]ter [address] | | | | | | [address] | | | | | | [place] [address] | | | | | | [phone] | | | | | | | | +--------+ + + + + as of this encounter Visit Diagnoses Not on filein this encounter"
--- OUTSIDE RECORDS SUMMARY | ~2018-04-21 | XMS | Encounter Summary ---
Demographics + + + | Address | [address] | | | [place] [address] | + + + | Home Phone | | + + + | Preferred Language | Unknown | + + + | Marital Status | Single | + + + | Episcopal Affiliation | Unknown | + + + | Race | Unknown | + + + | Ethnic Group | Unknown | + + + Author + + + | Author | [facility] [employer] | + + + | Organization [...] Team Providers + +------+ + | Care Side Stapler Name | Role | Phone | + [...] | Requisition | [address] | [place] | | | | | [place] [address] | | | | | | [phone] | | | +--------+ + + + [...] [place] | | | | | | [address] | | | | | | | | +--------+ + + + + | 06/06/ | Procedure | Plastic Surgery | Larisa Carpenter | | | 2018 | lashonda | | [facility] [address]ter [address] | | | | | | [address] | | | | | | [place] [address] | | | | | | [phone] | | | | | | | [...] 24 | 15 - 45 mg/dL | [facility] | + +-------+ + + + + | Specimen | + + | Cerebrospinal Fluid | | - CSF | + + + + + + + | Performing | Address | City/State/Zipcode | Phone Number | | Organization | | | | + + + + + | [facility] | [address] | [place] [address] | | + + + + + Glucose, CSF (03/28/2018 10:20 AM) + +-------+ + + | Component | Value | Ref Range | Performed At | + +-------+ + + | CSF GLUCOSE | 58 | 45 - 90 mg/dL | [facility] | + +-------+ + + + + | Specimen | + + | Cerebrospinal Fluid | | - Lumbar Puncture | + + + + + + + | Performing | Address | City/State/Zipcode | Phone Number | | Organization | | | | + + + + + | [facility] | [address] | [place] [address] | | + + + + + [...] | + + + + + | [facility] | [address] | [place] [address] | | + + + + + in this encounter Visit Diagnoses + + | Diagnosis | + + | Pseudotumor cerebri | + + | Benign intracranial hypertension | + +"
--- OUTSIDE RECORDS SUMMARY | ~2018-04-21 | XMS | Encounter Summary ---
Demographics + + + | Address | [address] | | | [place] [address] | + + + | Home Phone | | + + + | Preferred Language | Unknown | + + + | Marital Status | Single | + + + | Gnosticism Affiliation | Unknown | + + + | Race | Unknown | + + + | Ethnic Group | Unknown | + + + Author + + + | Author | [facility] [employer] [facility] | + + + | Organization [...] Team Providers + +------+ + | Care Lay Midwife Name | Role | Phone | + [...] | | hypertension | [address] | [place], [place] | | | | | | [place], | [address] Phone: | | | | | | [place] | [phone] | | | | | | [address] | Fax: | | | | | | Phone: | [phone] | | | | | | [phone] | | | | | | | Fax: | | | | | | | [phone] | | + +--------+ + + + [...] | | | [place] | [address] | | | | | [address] | | | | | | [phone] | | | +--------+---------+ + + + [...] h/o pseudotumor cerebri, morbid obesity, h/o schizophrenia. Concepcion states that she has a lengthy history [...] asked to obtain visual eng from an breaker off. She has limited fu nds and therefore would like to wait for LP before seeing an breaker off. She was advised ab out acute symptoms [...] [place] | | | | | | [address] | | | | | | | | +--------+ + + + + | 06/06/ | Procedure | Plastic Surgery | Larisa Carpenter | | | 2017 | visit | | [facility] [address] | | | | | | [address] | | | | | | [place] [address] | | | | | | [phone] | | | | | | | [...] PM MARINA LEONARD LUMBAR PUNCTURE | | [id number]/9/2018 10:23 AMHISTORY:27 years. Female. Pseudotumor | | [...] | + + + + + | [facility] | [address] | [place] [address] | | + + + + + [...] | + + + + + | [facility] | [address] | [place] [address] | | + + + + + Glucose, CSF (03/28/2018 10:20 AM) + +-------+ + + | Component | Value | Ref Range | Performed At | + +-------+ + + | CSF GLUCOSE | 58 | 45 - 90 mg/dL | [facility] | + +-------+ + + + + | Specimen | + + | Cerebrospinal Fluid | | - Lumbar Puncture | + + + + + + + | Performing | Address | City/State/Zipcode | Phone Number | | Organization | | | | + + + + + | [facility] | [address] | [place] [address] | | + + + + + CSF Cell Count With Differential (03/28/2018 10:20 AM) + + + + + | Component | Value | Ref Range | Performed At | + + + + + | COLOR | COLORLESS | | [facility] | + + + + + | APPEARANCE | CLEAR | | [facility] | + + + + + | [...] | + + + + + | [facility] | [address] | [place] [address] | | + + + + + [...] | | | | using the MDRD IDID | | | | | traceable equation. | | | + + + + + + + | Specimen | + + | Blood | + + + + + + + | Performing | Address | City/State/Zipcode | Phone Number | | Organization | | | | + + + + + | [facility] | [address] | [place] [address] | [phone] | | LABORATORY | [address] | | [...] + + + | [facility] | [address] | [place] [address] | [phone] | | LABORATORY | Blvd[address] | | [...] + + + | [facility] | [address] | [place] [address] | [phone] | | LABORATORY | Blvd[address] | | | + + + + + in this encounter Visit Diagnoses + + | Diagnosis | + + | Pseudotumor cerebri - Primary | + + | Benign intracranial hypertension | + + | Tension headache | + +
--- OUTSIDE RECORDS SUMMARY | ~2018-04-21 | XMS | Clinical Summary ---
Demographics + + + | Address | [address] | | | [place] [address] | + + + | Home Phone | | + + + | Preferred Language | Unknown | + + + | Marital Status | Single | + + + | Protestant Affiliation | Unknown | + + + | Race | Unknown | + + + | Ethnic Group | Unknown | + + + Author + + + | Author | [facility] [employer] [facility] | + + + | Organization [...] Team Providers + +------+ + | Care Private Inquiry Agent Name | Role | Phone | + [...] | | | | | | Imaging, [facility] Director Of Global Sales | | +--------+ + + + + | 03/28/ | Hospital | | Ary Beebe, | Pseudotumor cerebri | | 2017 | Encounter | | MD | | +--------+ + + + + | 03/28/ | Lab | | Jose Hidalgo, | Pseudotumor cerebri | | 2017 | Requisition | | [facility] | | +--------+ + + + + | 02/21/ | Telephone | | Patti, | | | 2017 | | | Ciarra, DIRECTOR TITLE | | +--------+ + + + + | 02/16/ | Office | | Ary Beebe, | Pseudotumor cerebri | | 2017 | Visit | | MD | (Primary Dx); | | | | | | Tension headache | +--------+ + + + + | 02/16/ | Lab | | Rian Cyr, | Pseudotumor cerebri | | 2018 | Requisition | | [facility]ender | | +--------+ + + + + [...] [place] | | | | | | [address] | | | | | | | | +--------+ + + + + | 06/06/ | Procedure | | Larisa Carpenter | | | 2017 | visit | | [address] | | | | | | [address] | | | | | | [place] [address] | | | | | | [phone] | | | | | | | [...] LUMBAR PUNCTURE DIAGNOSTIC 03/28/2018 10:23 AM | [facility] | | HISTORY: 27 years. Female. Pseudotumor [...] PM MARINA LEONARD LUMBAR PUNCTURE | | [id number]/9/2018 10:23 AMHISTORY:27 years. Female. Pseudotumor | | [...] [facility] | [address] | [place] [address] | | + + + + + [...] | + + + + + | [facility] | [address] | [place] [address] | | + + + + + [...] | + + + + + | [facility] | [address] | [place] [address] | | + + + + + Glucose, CSF (03/28/2018 10:20 AM) + +-------+ + + | Component | Value | Ref Range | Performed At | + +-------+ + + | CSF GLUCOSE | 58 | 45 - 90 mg/dL | [facility] | + +-------+ + + + + | Specimen | + + | Cerebrospinal Fluid | | - Lumbar Puncture | + + + + + + + | Performing | Address | City/State/Zipcode | Phone Number | | Organization | | | | + + + + + | [facility] | [address] | [place] [address] | | + + + + + APTT (03/28/2018 8:32 AM) + + + + + | Component | Value | Ref Range | Performed At | + + + + + | APTT | 30Comment: Testing | 23 - 32 seconds | [facility] | | | performed at [facility];[address] | | | | | [address] [facility];[place], [place] | | | | | [address] | | | + + + + + + + | Specimen | + + | Blood | + + + + + + + | Performing | Address | City/State/Zipcode | Phone Number | | Organization | | | | + + + + + | [facility] | [address] | [place] [address] | | + + + + + Protime-INR (03/28/2018 8:32 AM) + + + + + | Component | Value | Ref Range | Performed At | + + + + + | INR | 1.0Comment: REFERENCE | | [facility] | | | RANGE:0.9 [...] | | | | | performed at [facility] | | | | | [address] [facility];[place], [place] | | | | | [address] | | | + + + + + + + | Specimen | + + | Blood | + + + + + + + | Performing | Address | City/State/Zipcode | Phone Number | | Organization | | | | + + + + + | [facility] | [address] | [place] [address] | | + + + + + CBC W/Auto Diff (Reflex to Manual) (03/28/2018 8:32 AM)Only the most recent of 2 results w jenin the time period is included. + + + + + | Component | Value | Ref Range | Performed At | + + + + + | WBC | 11.33 (H) | 3.80 - 11.00 K/uL | [facility] | + + + + + | RBC | 4.69 | 3.70 - 5.10 M/uL | [facility] | + + + + + | HGB | 15.1 | 11.3 - 15.5 g/dL | [facility] | + + + + + | HCT | 44.0 | 34.0 - 46.0 % | [facility] | + + + + + | MCV | 93.8 | 80.0 - 100.0 fl | [facility] | + + + + + | MCH | 32.2 | 27.0 - 34.0 pg | [facility] | + + + + + | MCHC | 34.3 | 32.0 - 35.5 g/dL | [facility] | + + + + + | RDW SD | 43.3 | 37 - 53 fl | [facility] | + + + + + | PLT | 247 | 150 - 400 K/uL | [facility] | + + + + + | MPV | 7.5 | fl | [facility] | + + + + + | DIFF TYPE | AUTOMATED | | [facility] | + + + + + [...] Testing | 0.00 - 0.10 K/uL | [facility] | | | performed at [facility];[address] | | | | [address];[place] | | | | | [address] | | | + + + + + + + | Specimen | + + | Blood | + + + + + + + | Performing | Address | City/State/Zipcode | Phone Number | | Organization | | | | + + + + + | [facility] | [address] | [place] [address] | | + + + + + [...] CONCEPCION J FERRISCT HEAD WO | | [id number]/9/2018 8:10 AMHISTORY:27 years. Female. Pseudotumor cerebri.TECHNIQUE:5-mm | [...] [facility] | [address] | [place] [address] | | + + + + + [...] + + + + | [facility] | [address] | [place] [address] | [phone] | | LABORATORY | Blvd. | | [...] 25 | 23 - 32 mmol/L | [facility] | | | | | LABORATORY | [...] | 1.0 | 1.0 - 2.4 | [facility] | | | | | [facility] | [...] + + + | [facility] | [address] | [place] [address] | [phone] | | LABORATORY | Blvd. | | [...] +------+-------+ + | MEDICAID | [place] | [id number] | | | [address] | | | N | | | | [place], [place] | | | [place] | | | | [address] | | | JOGGER OPERATOR | | | | | + +--------+ [...] Self | [birth year] | Home: | [address] | | | al/Fam | | 1989 | [phone] | [address] [place] | | | [place] | | | [phone] | + +--------+ +--------+ + +
--- OUTSIDE RECORDS SUMMARY | ~2018-04-21 | XMS | Encounter Summary ---
Demographics + + + | Address | [address] | | | [place] [address] | + + + | Home Phone [...] + + + | Author | [facility] | + + + | Organization [...] Team Providers + +------+ + | Care Glassware Engraver Name | Role | Phone | + [...] | Radiology | Diagnoses | Concepción | [facility] [address] | | | | | Pseudotumor | MD Ary | [address] | | | | | cerebri | [address] | | | | | Procedures | Shaheen Mina | [place], [place] | | | | | CT head | [place], | [address] Phone: | | | | | without | [place] [address] | [phone] | | | | | contrast | Phone: | | | | | | | [phone] | | | | | | | Fax: | | | | | | | [phone] | | +--------+--------+ + + + + MRI/CAT Scan (Routine) +--------+--------+ + + + + | Status | Reason | Specialty | Diagnoses / | Referred By | Referred To | | | | | Procedures | Contact | Contact | +--------+--------+ + + + + | Closed | | Radiology | Diagnoses | Concepción | [facility] [address] | | | | | Pseudotumor | MD Ary | [address] | | | | | cerebri | [address] | | | | | Procedures | Shaheen Mina | [place], [place] | | | | | CT head | [place], | [address] Phone: | | | | | without | [place] [address] | [phone] | | | | | contrast | Phone: | | | | | | | [phone] | | | | | | | Fax: | | | | | | | [phone] | | +--------+--------+ + + + + Reason for Visit MRI/CAT Scan (Routine) +--------+--------+ + + + + | Status | Reason | Specialty | Diagnoses / | Referred By | Referred To | | | | | Procedures | Contact | Contact | +--------+--------+ + + + + | Closed | | Radiology | Diagnoses | Concepción, | [facility] [address] | | | | | Pseudotumor | MD Ary | [address] | | | | | cerebri | [address] | | | | | Procedures | Shaheen Mina | [place], [place] | | | | | CT head | [place], | [address] Phone: | | | | | without | [place] [address] | [phone] | | | | | contrast | Phone: | | | | | | | [phone] | | | | | | | Fax: | | | | | | | [phone] | | +--------+--------+ + + + + Encounter Details +--------+ + + + + | Date | Type | Department | Care Team | Description | +--------+ + + + + | 03/28/ | [facility] | [facility] | Ary Beebe, | Pseudotumor cerebri | | 2018 | Encounter | [facility] [address] | [address] | | | | | [address] | [place] | | | | | [place] [address] | [id number] | | | | | [phone] | | | +--------+ + + + [...] [place] | | | | | | [address] | | | | | | | | +--------+ + + + + | 06/06/ | Procedure | Plastic Surgery | Larisa Carpenter | | | 2017 | visit | | [address] | | | | | | [address] | | | | | | [place] [address] | | | | | | [phone] | | | | | | | [...] PDT CONCEPCION ALBA HEAD WO | | [id number]/9/2018 8:10 AMHISTORY:27 years. Female. Pseudotumor cerebri.TECHNIQUE:5-mm | [...] [facility] | [address] | [facility] [address] | | + + + + + in this encounter Visit Diagnoses + + | Diagnosis | + + | Pseudotumor cerebri | + + | Benign intracranial hypertension | + +"
--- OUTSIDE RECORDS SUMMARY | ~2018-04-21 | XMS | Encounter Summary ---
Demographics + + + | Address | [address] | | | [place] [address] | + + + | Home Phone | | + + + | Preferred Language | Unknown | + + + | Marital Status | Single | + + + | Mormon Affiliation | Unknown | + + + | Race | Unknown | + + + | Ethnic Group | Unknown | + + + Author + + + | Author | [facility] [employer] [facility] | + + + | Organization [...] Team Providers + +------+ + | Care Admitting Clerk Name | Role | Phone | [...] | Requisition | [address] | Sales Producer | | | | | [place] [address] | | | | | | [phone] | | | +--------+ + + + [...] [place] | | | | | | [address] | | | | | | | | +--------+ + + + + | 06/06/ | Procedure | Plastic Surgery | JaydenKby | | | 2018 | lashonda | | [address] | | | | | | [address] | | | | | | [place] [address] | | | | | | [phone] | | | | | | | [...] 92 | 35 - 115 U/L | [facility] | | | | | LABORATORY | + + + + + | AST | 17 | 10 - 45 U/L | [facility] | | | | | [facility]ATORY | + + + + + | ALT | 30 | 10 - 65 U/L | [facility] | | | | | LABORATORY | + + + + + | EGFR | >60Comment: GFR <60: | >60 mL/min/1.73_m2 | [facility] | | | CHRONIC KIDNEY DISEASE, [...] + + + | [facility] | [address] | [place] [address] | [phone] | | LABORATORY | [address]. | | [...] + + + | [facility] | [address] | [place] [address] | [phone] | | LABORATORY | Blvd[address] | | [...] | [address] | [place] [address] | [phone] | | LABORATORY | Blvd. | | | + + + + + in this encounter Visit Diagnoses + + | Diagnosis | + + | Pseudotumor cerebri | + + | Benign intracranial hypertension | + +"
[~2018-04-21 17:39] MED LIST changes: +CRUTCH1 EACH; +LAMICTAL100 MG PO; +MELOXICAM7.5 MG PO
[2018-04-21] MEDS ORDERED: MOBIC15 MG PO (17:54)
[2018-04-21] MEDS ORDERED: INTUNIV4 MG PO (17:55)
[2018-04-21] MEDS ORDERED: GABAPENTIN300 MG PO (17:55)
[2018-04-21] MEDS ORDERED: ACETAZOLAMIDE125 MG PO (17:57)
== END 2018-04-21 21:01 | disposition home or self-care (01) ==
LOC: ED 17:39
DX: H57.13 Ocular pain, bilateral (principal); F17.200 Nicotine dependence, unspecified, uncomplicated; F31.9 Bipolar disorder, unspecified; F20.9 Schizophrenia, unspecified; Z79.899 Other long term (current) drug therapy; Z88.8 Allergy status to other drugs, medicaments and biological substances
CPT/HCPCS: 96372; 99283; J1885

== ENCOUNTER 2018-09-26 11:09 | Emergency (ER) | payer OTHER ==
--- OUTSIDE RECORDS SUMMARY | ~2018-09-26 | XMS | Clinical Summary ---
Demographics + + + | Address | [address] | | | [place] [address] | + + + | Home Phone | | + + + | Preferred Language | Unknown | + + + | Marital Status | Single | + + + | Yazdanism Affiliation | Unknown | + + + | Race | Unknown | + + + | Ethnic Group | Unknown | + + + Author + + + | Author | [facility] | + + + | Organization | [facility] | + + + | [...] Team Providers + +------+ + | Care Blankmaker Name | Role | Phone | + +------+ + | Kari Haynes PA-C | PP | | + +------+ + Allergies + + + + + + | Active Allergy | Reactions | Severity | Noted | Comments | | | | | Date | | + + + + + + | Olanzapine | Muscle Pain | | 02/17/20 | | | | | | 18 | | + + + + + + Current Medications + + +---------+---------+------+------+-------+ | Prescription | Sig. | Disp. | Refills | Star | End | Statu | | | | | | t | Date | s | | | | | | Date | | | + + +---------+---------+------+------+-------+ | meloxicam (MOBIC) | | | | 07/3 | | Activ | | 15 MG tablet | | | | 0/20 | | e | | | | | | 18 | | | + + +---------+---------+------+------+-------+ | lamoTRIgine | Take 100 mg by mouth | | | | | Activ | | (LAMICTAL) 100 MG | 2 (two) times | | | | | e | | tablet | daily. | | | | | | + + +---------+---------+------+------+-------+ | escitalopram | Take 20 mg by mouth | | | | | Activ | | (LEXAPRO) 20 MG | daily. | | | | | e | | tablet | | | | | | | + + +---------+---------+------+------+-------+ | Etonogestrel | Inject into the | | | 10/0 | | Activ | | (IMPLANON SC) | skin. | | | 20 | | e | | | | | | 16 | | | + + +---------+---------+------+------+-------+ | GuanFACINE HCl | Take 1 tablet by | | | | | Activ | | (INTUNIV) 4 MG TB24 | mouth. | | | | | e | + + +---------+---------+------+------+-------+ | gabapentin | Take 600 mg by mouth | | | 10/ | | Activ | | (NEURONTIN) 100 MG | nightly. | | | 20 | | e | | capsule | | | | 18 | | | + + +---------+---------+------+------+-------+ | verapamil (CALAN) | Take 1 tab daily for | 60 | 3 | 02/1 | | Activ | | 40 MG | a week, then 1 tab | tablet | | 5/20 | | e | | tabletIndications: | twice a day | | | 19 | | | | Tension headache | | | | | | | + + +---------+---------+------+------+-------+ | acetaZOLAMIDE | Take 2 capsules by | 120 | 3 | / | | Activ | | (DIAMOX) 500 MG | mouth 2 (two) times | capsule | | 11/06 | | e | | capsuleIndications: | daily. | | | 19 | | | | Pseudotumor cerebri | | | | | | | + + +---------+---------+------+------+-------+ Active Problems + + + | Problem | Noted Date | + + + | Pseudotumor cerebri | 02/17/2018 | + + + | Tension headache | 02/17/2018 | + + + Encounters +--------+ + + + + | Date | Type | Specialty | Care Team | Description | +--------+ + + + + | 08/09/ | Telephone | | Ary Beebe, | Other (has a | | 2019 | | | MD | questions about | | | | | | switching doctors) | +--------+ + + + + | 08/04/ | Office | | Ary Beebe, | Pseudotumor cerebri | | 2018 | Visit | | MD | (Primary Dx); | | | | | | Tension headache | +--------+ + + + + | 08/04/ | Documentati | | Patti, | Other ([facility] | | 2018 | on Only | | AIDAN Lafleur [facility] 07/31/18) | +--------+ + + + + | 07/04/ | Telephone | | Rober Cardenas, | | | 2019 | | | [place] | | +--------+ + + + + from Last 3 Months Social History + +-------+ +--------+------+ | Tobacco [...] to Quit: No; Counseling Given: No | | Comments: using nicotin patches to quit | + + + + +---------+ + | Alcohol Use | Drinks/We | oz/Week | Comments | | | ek | | | + + +---------+ + | No | | | | + + +---------+ + + + + | Sex Assigned at | Date Recorded | | | | + + + | Not on file | | + + + Last Filed Vital Signs + + + + | Vital Sign | Reading | Time Taken | + + + + | Blood Pressure | 140/86 | 08/04/2018 1:32 PM PST | + + + + | Pulse | 75 | 08/04/2018 1:32 PM PST | + + + + | Temperature | 36.6 C (97.9 F) | 03/28/2018 8:00 AM PDT | + + + + | Respiratory Rate | 18 | 03/28/2018 10:25 AM PDT | + + + + | Oxygen Saturation | 100% | 08/04/2018 1:32 PM PST | + + + + | Inhaled Oxygen | - | - | | Concentration | | | + + + + | Weight | 136.1 kg (300 lb) | 08/04/2018 1:32 PM PST | + + + + | Height | 162.6 cm (5' 4") | 08/04/2018 1:32 PM PST | + + + + | Body Mass Index | 51.49 | 08/04/2018 1:32 PM PST | + + + + Plan of Treatment + + + + + | Health Maintenance | Due Date | Last Done | Comments | + + + + + | Vaccine: | | | | | Dtap/Tdap/Td (1 - | 7 | | | | Tdap) | | | | + + + + + | Vaccine: | | | | | Pneumococcal 19-64 | 7 | | | | (PPSV23 only) Medium | | | | | Risk (1 of 1 - | | | | | PPSV23) | | | | + + + + + | Cervical Cancer | | | | | Screening (Pap) | 8 | | | + + + + + | Vaccine: Influenza | | | | | (Season Ended) | 9 | | | + + + + + Results Not on filefrom Last 3 Months Insurance + +--------+ +------+-------+ + | Payer | Benefi | Subscriber | Type | Phone | Address | | | t Plan | ID | | | | | | / | | | | | | | Group | | | | | + +--------+ +------+-------+ + | MEDICAID | [place] | [id number] | | | [address] | | | [place] | | | | [place] | | | [place] | | | | [address] | | | CORPORATE TRAVEL MANAGER | | | | | + +--------+ +------+-------+ + + +--------+ +--------+ + + | Guarantor Name | Accoun | Relation to | Date | Phone | Billing Address | | | t Type | Patient | of | | | | | | | | | | + +--------+ +--------+ + + | CONCEPCION FIERRO | Person | Self | [birth year] | Home: | [address] | | | al/Fam | | 1989 | [phone] | [place] [address] | | | [place] | | | [address] | | + +--------+ +--------+ + +
--- OUTSIDE RECORDS SUMMARY | ~2018-09-26 | XMS | Encounter Summary ---
Demographics + + + | Address | [address] | | | [place] [address] | + + + | Home Phone | | + + + | Preferred Language | Unknown | + + + | Marital Status | Single | + + + | Muslim Affiliation | Unknown | + + + | Race | Unknown | + + + | Ethnic Group | Unknown | + + + Author + + + | Author | [facility] | + + + | Organization | [facility] | + + [...] Team Providers + +------+ + | Care Hot Top Liner Helper Name | Role | Phone | + +------+ + | Kari Haynes PA-C | PCP | | + +------+ + Reason for Visit + + + | Reason | Comments | + + + | Follow-up | Pseudotumor cerebri | + + + Consult and Treat (Routine) +--------+--------+ + + + + | Status | Reason | Specialty | Diagnoses / | Referred By | Referred To | | | | | Procedures | Contact | Contact | +--------+--------+ + + + + | Denied | | Neurology | Diagnoses | Brown, | Concepc[place], | | | | | Benign | Kari | MD Ary | | | | | intracranial | E, PA-C | [address] | | | | | | [address] | | | | | hypertension | [address] | [place], [place] | | | | | | [place], | [address] Phone: | | | | | | [place] | [phone] | | | | | | [address] | Fax: | | | | | | Phone: | [phone] | | | | | | [phone] | | | | | | | Fax: | | | | | | | [phone] | | +--------+--------+ + + + + Encounter Details +--------+---------+ + + + | Date | Type | Department | Care Team | Description | +--------+---------+ + + + | 08/04/ | Office | [facility] | Ary Beebe, | Pseudotumor cerebri | | 2019 | Visit | [facility] [place] | [address] | (Primary Dx); | | | | [address] | [place] | Tension headache | | | | [place] | [address] | | | | | [address] | | | | | | [phone] | | | +--------+---------+ + + + [...] | | + +---+---+---+ + + | Comments: using nicotin patches to quit [...] PM PST | + + + + in this encounter Instructions Patient Instructions - Ary Beebe MD - 08/04/2018 1:35 PM PSTYour latest VISUAL FI ELDS done by Dr Bueno does not show any worsening compared to the one in April 2018. Continue Diamox 1000mg twice a day Please get labs done and call my office in a week to get results - BMP (can get it done vanita buchanan) For tension type headache, trial of Verapamil Take 40mg tabs once a day for a week Then take 1 tab twice a day Call the office after 2 weeks, and we can either increase the dose or stay on the same if y ou are tolerating it Verapamil tablets Brand Name: Harsha What is this medicine? VERAPAMIL (aureliano AP a mil) is a calcium-channel alden. It affects the amount of calcium fou nd in your heart and muscle cells. This relaxes your blood vessels, which can reduce the yovani unt of work the heart has to do. This medicine is used to treat chest pain caused by angina, high blood pressure, and controls heart rate in certain conditions. How should I use this medicine? Take this medicine by mouth with a glass of water. Follow the directions on the prescriptio n label. This medicine can be taken with or without food. Take your doses at regular interva ls. Do not take your medicine more often than directed. Talk to your handle and vent machine operator regarding the use of this medicine in children. Special care may be needed. What side effects may I notice from receiving this medicine? Side effects that you should report to your doctor or health care attendant as soon as p ossible: difficulty breathing dizziness or light headedness fainting fast heartbeat, palpitations, irregular heartbeat, or chest pain skin rash slow heartbeat swelling of the legs or ankles Side effects that usually do not require medical attention (report to your doctor or health care attendant if they continue or are bothersome): constipation facial flushing headache nausea, vomiting sexual dysfunction weakness or tiredness What may interact with this medicine? Do not take this medicine with any of the following: cisapride disopyramide dofetilide grapefruit juice hawthorn pimozide red yeast rice This medicine may also interact with the following medications: barbiturates such as phenobarbital cimetidine cyclosporine lithium local anesthetics or general anesthetics medicines for heart rhythm problems like amiodarone, digoxin, flecainide, procainamide, quinidine medicines for high blood pressure or heart problems medicines for seizures like carbamazepine and phenytoin rifampin, rifabutin or rifapentine theophylline or aminophylline What if I miss a dose? If you miss a dose, take it as soon as you can. If it is almost time for your next dose, ta ke only that dose. Do not take double or extra doses. Where should I keep my medicine? Keep out of the reach of children. Store at room temperature between 15 and 25 degrees C (59 and 77 degrees F). Protect from l ight. Keep container tightly closed. Throw away any unused medicine after the expiration brenda e. What should I tell my health care provider before I take this medicine? They need to know if you have any of these conditions: heart or blood vessel disease heart rhythm disturbances such as sick sinus syndrome, ventricular arrhythmias, Kendrick-Pa rkinson-White syndrome, or Iize-Ebaosp-Ruyrzu syndrome liver or kidney disease low blood pressure an unusual or allergic reaction to verapamil, other medicines, foods, dyes, or preservat jennifer or trying to get breast-feeding What should I watch for while using this medicine? Check your blood pressure and pulse rate regularly. Ask your doctor or health care professi onal what your blood pressure and pulse rate should be and when you should contact him or he r. Do not suddenly stop taking this medicine. Ask your doctor or health care attendant shabnam hernandez to gradually reduce the dose. You may get drowsy or dizzy. Do not drive, use machinery, or do anything that needs mental alertness until you know how this medicine affects you. Do not stand or sit up quickly, michelle cially if you are an older patient. This reduces the risk of dizzy or fainting spells. Alcoh ol may interfere with the effect of this medicine. Avoid alcoholic drinks. NOTE:This sheet is a summary. It may not cover all possible information. If you have questi ons about this medicine, talk to your doctor, pharmacist, or health care provider. Copyright 2018 [employer]vier in this encounter Progress Notes Ary Beebe MD - 08/04/2018 1:35 PM PSTFormatting of this note may be different fro m the original. Subjective: Patient ID: Kiarra Fierro is a 28 y.o. female here for follow up of [facility] HPI The following portions of the patient's history were reviewed and updated as appropriate an d is available elsewhere in the record: allergies, current medications, past family history, past medical history, past social history, past surgical history and problem list. Kiarra is here by herself for followup. She is quite tearful today. She believes that nobody is taking her headache seriously. S he complains that she is unable to play outside with the children nor have her roommate play any music as it bothers her. She states that this has been going on since 01/2018 after e had the LP. States that her head feels swollen. There has been no headache-free day [facility] then. She reports no headache when she wakes up in the morning, but by lunch time it is 5 -6/10 intensity, by bedtime it is 7-8/10. She states that her psychiatrist has diagnosed her with bipolar disorder and not schizophre osmel. She also was told to ask about auditory hallucinations - believes that she can hear mus ic, it is not very bothersome, but she can hear it and her psychiatrist states that it is no t from her mental health issues. The patient denies any sudden vision loss. I have reviewed recent visual field reports (05/08) sent by Dr. Bueno, her scada operator. The report states that it is stable. I have personally compared these visual eng to the ones from 04/2018. The right eye visual fiel ds appear improved, whereas the left eye remains unchanged (likely permanent deficits). Bot h visual eng appear constricted. She clarify that she is continuing Diamox 1000 mg twice a day. She has not had BMP checked that was advised at her last visit. Current Outpatient Prescriptions: acetaZOLAMIDE (DIAMOX) 500 MG capsule, Take 1 cap morning and 1 cap at night for 15 da ys, then take 2 caps morning and 1 cap at night, Disp: 90 capsule, Rfl: 3 escitalopram (LEXAPRO) 20 MG tablet, Take 20 mg by mouth daily., Disp: , Rfl: Etonogestrel (IMPLANON SC), Inject into the skin., Disp: , Rfl: gabapentin (NEURONTIN) 100 MG capsule, Take 600 mg by mouth nightly., Disp: , Rfl: GuanFACINE HCl (INTUNIV) 4 MG TB24, Take 1 tablet by mouth., Disp: , Rfl: lamoTRIgine (LAMICTAL) 100 MG tablet, Take 100 mg by mouth 2 (two) times daily., Disp: , Rfl: meloxicam (MOBIC) 15 MG tablet, , Disp: , Rfl: Review of Systems Hears music (?auditory hallucinations), intractable headache, unchanged vision (poorer in L eye). Rest as noted in consult note dated 02/16/18 Objective: Physical Exam BP 140/86 (BP Location: Left forearm, Patient Position: Sitting) | Pulse 75 | Ht 1.626 m (5' 4") | Wt 136.1 kg (300 lb) | SpO2 100% | BMI 51.49 kg/m Young adult woman, neatly groomed, tearful affect. Cooperative with exam. Focused neurological exam Alert, oriented, fluent speech. PERRL. EOMI. No nystagmus. fundus exam - slightly pale discs, no colette papilledema Face symmetric. RS -b/l breath sounds clear CV - S1S2 heard. No murmurs Assessment and Plan: Kiarra is a 28-year-old lady with a history of bipolar disorder, recreational methamphetami ne and cannabis use, chronic headaches, diagnosis of pseudotumor cerebri in 2007. She was on carbonic anhydrase inhibitors for a couple of years at that time. Established care here in January 2018. Reports increased frequency of headaches since then. She has mild blurring of vision intermittently.On initial examination she did not have sign s of papilledema. The disks appeared slightly pale. Has undergone LP in March 2018 under fluoroscopic guidance. Opening pressure was document ed as 29.5 cmH20. She was lying prone for this. CT head without contrast was done prior to t he procedure which was normal. On follow up, patient is c/o daily headaches that are intractable. She has had [address] [facility] [place] (04/2018 and 07/2018) that will be scanned in [facility] and May solorio reviewed personally. Both show constricted eng (HVF 30-2) but right is better than L and unchanged in the 3 month interval. IMPRESSION: Pseudotumor cerebri was considered at initial visits as LP revealed mild eleva tion of opening pressure at 29.5 cmH20. Significant weight gain over last few years also co rrelates with this diagnosis. However CT head did not show slit like ventricles which is see n typically with a diagnosis of pseudotumor cerebri. Papilledema is not seen on exam but thi s is unreliable in those who have prior history of pseudotumor cerebri as scarring of tissue can occur. Based on unchanging VF in April 2018 to July 2018 - likely there is no recurrence of pseudotumor cerebri. Likely these are chronic tension headaches RECOMMENDATIONS: Continue Diamox 500mg 2 caps bid. Will consider tapering it down at future visits Reminded patient to get BMP done locally (asked her to go across to the main hospital lab [facility] [place] but she does not have the time). Order provided. She was advised about acute symptoms of vision loss and advised to go to the ER if needed. For chronic tension headaches - I have counseled the patient that pseudotumor cerebri is no t likely the cause for her chronic daily headaches. She is morbidly obese. It is possible that she has sleep apnea which is untreated. Chronic tension headaches are likely possible. I have discussed about headache prophylactic options including antidepressants(first line) , antiseizure medications and antihypertensives. As she is currently being managed by a lydia chiatrist and is in multiple psychoactive medications, I will refrain from adding one. We d iscussed about propranolol and verapamil, which may help with headaches. She is agreeable to start with verapamil. I have discussed about common side effects inclu ding pedal edema, palpitations or lightheadedness. I have provided her detailed printout. She will start with 1 tablet 40 mg daily and increase to 1 tablet twice a day after 2 weeks. I will see her back in 6 weeks at her request. Patient continues to use marijuana at this time (on her accord) for headache management. in this encounter Plan of Treatment + +--------+ + + | Name | Priori | Associated Diagnoses | Order Schedule | | | ty | | | + +--------+ + + | Basic metabolic panel | Routin | Pseudotumor | Expected: | | | e | cerebri | 08/04/2018, Expires: | | | | | 08/04/2019 | + +--------+ + + as of this encounter Visit Diagnoses + + | Diagnosis | + + | Pseudotumor cerebri - Primary | + + | Benign intracranial hypertension | + + | Tension headache | + +
--- OUTSIDE RECORDS SUMMARY | ~2018-09-26 | XMS | Clinical Summary ---
Demographics + + + | Address | [address] | | | [place] [address] | + + + | Home Phone | | + + + | Preferred Language | Unknown | + + + | Marital Status | Single | + + + | Zoroastrianism Affiliation | Unknown | + + + | Race | Unknown | + + + | Ethnic Group | Unknown | + + + Author + + + | Author | [facility] | | | and [place] | + + + | Organization | [facility] | | | and [place] | + + + | Address | Unknown | + + + | Phone | Unavailable | + + + Support + + +---------+ + | Name | Relationship | Address | Phone | + + +---------+ + | Nico Romero | ECON | Unknown | | + + +---------+ + | CapoAmy | ECON | Unknown | | + + +---------+ + Care Team Providers + +------+ + | Care Information Tech Name | Role | Phone | + +------+ + PP | Unavailable | + +------+ + Allergies Not on File Medications Not on file Active Problems Not on file Social History + +-------+ +--------+------+ | Tobacco [...] on file | | + + + + + + + | Job Start Date | Occupation | Industry | + + + + | Not on file | Not on file | Not on file | + + + + + + + + | Travel History | Travel Start | Travel End | + + + + + + | No recent travel history available. | + + Plan of Treatment +--------+---------+ + + + | Date | Type | Specialty | Care Team | Description | +--------+---------+ + + + | 10/20/ | Office | | Sangeeta Yung | | | 2018 | Visit | | MD Jameson [address] | | | | | | [place] | | | | | | [place] [address] | | | | | | [phone] | | | | | | | | +--------+---------+ + + + + + + + + | Health [...] Results Not on filefrom Last 3 Months Advance Directives Patient has advance care planning documents on file. For more information, please contact:[facility] [place] [address]"
--- OUTSIDE RECORDS SUMMARY | ~2018-09-26 | XMS | Encounter Summary ---
Demographics + + + | Address | [address] | | | [place] [address] | + + + | Home Phone | | + + + | Preferred Language | Unknown | + + + | Marital Status | Single | + + + | Evangelical Affiliation | Unknown | + + + | Race | Unknown | + + + | Ethnic Group | Unknown | + + + Author + + + | Author | [facility] | + + + | Organization | [facility] | + + [...] Team Providers + +------+ + | Care Weather Teacher Name | Role | Phone | + +------+ + | Kari Haynes PA-C | PCP | | + +------+ + Reason for Visit +--------+ + | Reason | Comments | +--------+ + | Other | [facility] 07/31/18 | +--------+ + Encounter Details +--------+ + + + + | Date | Type | Department | Care Team | Description | +--------+ + + + + | 08/04/ | Documentati | Luisa | Armstrong, | Other ([facility] | | 2019 | on Only | [facility] Center | AIDAN Laf[place] | [facility] 07/31/18) | | | | [address] [place] | | | | | | [place] | | | | | | [address] | | | | | | [phone] | | | +--------+ + + + [...] + + + as of this encounter Progress Ciarra Mays CMA - 08/04/2018 8:05 AM PSTEye exam notes received from [facility] [place] gave to provider for review and will send to scan.in this encounter Plan of Treatment Not on fileas of this encounter Visit Diagnoses Not on filein this encounter"
--- OUTSIDE RECORDS SUMMARY | ~2018-09-26 | XMS | Encounter Summary ---
Demographics + + + | Address | [address] | | | [place] [address] | + + + | Home Phone | | + + + | Preferred Language | Unknown | + + + | Marital Status | Single | + + + | Baptism Affiliation | Unknown | + + + | Race | Unknown | + + + | Ethnic Group | Unknown | + + + Author + + + | Author | [facility] [employer] [facility] | + + + | Organization | [facility] | + + + [...] Team Providers + +------+ + | Care Embedded Systems Software Developer Name | Role | Phone | + +------+ + | Kari Haynes PA-C | PCP | | + +------+ + Encounter Details +--------+ + + + + | Date | Type | Department | Care Team | Description | +--------+ + + + + | 07/04/ | Telephone | Luisa | Rober Cardenas, | | | 2018 | | [facility] | [place] | | | | | [address] | | | | | | [place] | | | | | | [address] | | | | | | [phone] | | | +--------+ + + + [...] as of this encounter Plan of Treatment Not on fileas of this encounter Visit Diagnoses Not on filein this encounter"
--- OUTSIDE RECORDS SUMMARY | ~2018-09-26 | XMS | Encounter Summary ---
Demographics + + + | Address | [address] | | | [place] [address] | + + + | Home Phone | | + + + | Preferred Language | Unknown | + + + | Marital Status | Single | + + + | Tenriism Affiliation | Unknown | + + + | Race | Unknown | + + + | Ethnic Group | Unknown | + + + Author + + + | Author | [facility] | + + + | Organization | [facility] | + + + | [...] Team Providers + +------+ + | Care Ceramic Research Engineer Name | Role | Phone | + +------+ + | Kari Haynes PA-C | PCP | | + +------+ + Reason for Visit +--------+ + | Reason | Comments | +--------+ + | Other | has a questions about switching doctors | +--------+ + Encounter Details +--------+ + + + + | Date | Type | Department | Care Team | Description | +--------+ + + + + | 08/09/ | Telephone | [facility] | [facility]ry gamino, | Other (has a | | 2019 | | [facility] | [address] | questions about | | | | [address] | [address] [place] | switching doctors) | | | | [place] | [address] | | | | | [address] | | | | | | [phone] | | | +--------+ + + + [...]
--- OUTSIDE RECORDS SUMMARY | ~2018-09-26 | XMS | Encounter Summary ---
Demographics + + + | Address | [address] | | | [place] [address] | + + + | Home Phone | | + + + | Preferred Language | Unknown | + + + | Marital Status | Single | + + + | Faith Affiliation | Unknown | + + + | Race | Unknown | + + + | Ethnic Group | Unknown | + + + Author + + + | Author | [facility] [employer] [facility] | + + + | Organization | [facility] | + + + | [...] Team Providers + +------+ + | Care Conveyor Operator Name | Role | Phone | + +------+ + | Kari Haynes PA-C | PCP | | + +------+ + Encounter Details +--------+ + + + + | Date | Type | Department | Care Team | Description | +--------+ + + + + | 07/04/ | Telephone | Luisa | Rober Cardenas, | | | 2018 | | [facility] | [place] | | | | | [address] | | | | | | [place] | | | | | | [address] | | | | | | [phone] | | | +--------+ + + + [...]
--- OUTSIDE RECORDS SUMMARY | ~2018-09-26 | XMS | Clinical Summary ---
Demographics + + + | Address | [address] | | | [place] [address] | + + + | Home Phone [...] + + + | Author | [facility] [employer] [facility] | + + + | Organization | [facility] | + + + | [...] Team Providers + +------+ + | Care Vault Installer Name | Role | Phone [...] | Documentati | | Patti, | Other ([facility] | | 2018 | on Only | [...] +------+-------+ + | MEDICAID | [place] | [id number] | | | [address] | | | [place] | | | | [place] | | | [place] | | | | [address] | | | [employer] | | | | | + +--------+ [...] | 1989 | [phone] | [place] [address] | | | donna | | | [phone] | | + +--------+ +--------+ + +
--- OUTSIDE RECORDS SUMMARY | ~2018-09-26 | XMS | Encounter Summary ---
Demographics + + + | Address | [address] | | | [place] [address] | + + + | Home Phone | | + + + | Preferred Language | Unknown | + + + | Marital Status | Single | + + + | Holiness Affiliation | Unknown | + + + | Race | Unknown | + + + | Ethnic Group | Unknown | + + + Author + + + | Author | [facility] | + + + | Organization | [facility] | + + + [...] Team Providers + +------+ + | Care Machine Mover Name | Role | Phone | + [...] + + | 08/09/ | Telephone | [facility] | [facility]ry gamino, | Other (has a | | 2019 | | [facility] | [address] | questions about | | | | [address] | [address] [place] | switching doctors) | | | | [place] | [address] | | | | | [address] | | | | | | [phone] | | | +--------+ + + + [...]
--- OUTSIDE RECORDS SUMMARY | ~2018-09-26 | XMS | Encounter Summary ---
Demographics + + + | Address | [address] | | | [place] [address] | + + + | Home Phone | | + + + | Preferred Language | Unknown | + + + | Marital Status | Single | + + + | Restorationist Affiliation | Unknown | + + + | Race | Unknown | + + + | Ethnic Group | Unknown | + + + Author + + + | Author | [facility] [employer] [facility] | + + + | Organization | [facility] | + + + [...] Team Providers + +------+ + | Care Concrete Pourer Name | Role | Phone | + +------+ + | Kari Haynes PA-C | PCP | | + +------+ + Reason for Visit +--------+ + | Reason | Comments | +--------+ + | Other | [facility] 07/31/18 | +--------+ + Encounter Details +--------+ + + + + | Date | Type | Department | Care Team | Description | +--------+ + + + + | 08/04/ | Documentati | Luisa | Armstrong, | Other ([facility] | | 2019 | on Only | Neuroscience Center | AIDAN Lafle[place] | Eye Center 07/31/18) | | | | [address] | | | | | | [place] | | | | | | [address] | | | | | | [phone] | | | +--------+ + + + [...] 8:05 AM PSTEye exam notes received from [facility] [place] gave to provider for review and will send to scan.in this encounter Plan of Treatment Not on fileas of this encounter Visit Diagnoses Not on filein this encounter"
--- OUTSIDE RECORDS SUMMARY | ~2018-09-26 | XMS | Encounter Summary ---
Demographics + + + | Address | [address] | | | [place] [address] | + + + | Home Phone | | + + + | Preferred Language | Unknown | + + + | Marital Status | Single | + + + | Pentecostalism Affiliation | Unknown | + + + | Race | Unknown | + + + | Ethnic Group | Unknown | + + + Author + + + | Author | [facility] [email or web address] | + + + | Organization | [facility] | + + + [...] Team Providers + +------+ + | Care Portfolio Accountant Name | Role | Phone | + [...] | | hypertension | [address] | [place], [place] | | | | | | [place], | [address] Phone: | | | | | | [place] | [phone] | | | | | | [address] | Fax: | | | | | | Phone: | [phone] | | | | | | [phone] | | | | | | | Fax: | | | | | | | [phone] | | +--------+--------+ + + + + Encounter Details +--------+---------+ + + + | Date | Type | Department | Care Team | Description | +--------+---------+ + + + | 08/04/ | Office | [facility] | Ary Beebe, | Pseudotumor cerebri | | 2019 | Visit | [facility] [place] | [address] | (Primary Dx); | | | | [address] | [place] | Tension headache | | | | [place] | [address] | | | | | [address] | | | | | | [phone] | | | +--------+---------+ + + + [...] more often than directed. Talk to your electronics instructor regarding the use of this medicine in children. Special care may be needed. What side effects may I notice from receiving this medicine? Side effects that you should report to your doctor or health post acute care nurse practitioner as soon as p ossible: difficulty breathing dizziness or light headedness fainting fast heartbeat, palpitations, irregular heartbeat, or chest pain skin rash slow heartbeat swelling of the legs or ankles Side effects that usually do not require medical attention (report to your doctor or health post acute care nurse practitioner if they continue or are bothersome): constipation [...] syndrome, ventricular arrhythmias, Kendrick-Pa rkinson-White syndrome, or Qatz-Brnjnk-Aicaoj syndrome liver or kidney disease low blood [...] this medicine. Ask your doctor or health post acute care nurse practitioner shabnam hernandez to gradually reduce the dose. [...] y.o. female here for follow up of [facility] HPI The following portions of the [...] swollen. There has been no headache[facility]. She reports no headache when [...] reports (05/08) sent by Dr. Bueno, her non profit financial controller. The report states that it is stable. [...] She has had 2 VF done at [facility] [place] (04/2018 and 07/2018) that will be scanned in [facility] and May solorio reviewed personally. Both show [...]
--- OUTSIDE RECORDS SUMMARY | ~2018-09-26 | XMS | Clinical Summary ---
Demographics + + + | Address | [address] | | | [place] [address] | + + + | Home Phone | | + + + | Preferred Language | Unknown | + + + | Marital Status | Single | + + + | Jehovah'S Witness Affiliation | Unknown | + + + | Race | Unknown | + + + | Ethnic Group | Unknown | + + + Author + + + | Author | [facility] | | | and Marceloana | + + + | Organization | [facility] | | | and Marceloana [...] Team Providers + +------+ + | Care Embossing Machine Operator Helper Name | Role | Phone | [...] | | | | | [place] [address] | | | | | | [phone] | | | | | | | [...] documents on file. For more information, please contact:[facility] [place] [address]"
[~2018-09-26 11:09] MED LIST changes: +ACETAZOLAMIDE125 MG PO; +ACETAZOLAMIDE250 MG PO; +GABAPENTIN300 MG PO; +GABAPENTIN600 MG PO; +INTUNIV4 MG PO; +LEXAPRO20 MG PO; +MIRALAX17 GM PO; +NICOTINE PATCH1 EAC4 TD
== END 2018-09-26 11:52 | disposition left against medical advice (07) ==
LOC: ED 11:09
DX: Z53.21 Procedure and treatment not carried out due to patient leaving prior to being seen by health care provider (principal)

== ENCOUNTER 2018-11-30 12:59 | Emergency (ER) | payer OTHER ==
[~2018-11-30] VITALS: Ht 162.6 cm; Wt 120.2 kg
[~2018-11-30 12:59] MED LIST changes: +ESCITALOPRAM OX20 MG PO; +GABAPENTIN400 MG PO; +GUANFACINE HCL E4 MG PO; +LAMOTRIGINE100 MG PO; +LITHIUM CARBON300 MG PO; +VERAPAMIL HCL40 MG PO
--- OUTSIDE RECORDS SUMMARY | 2018-11-30 13:03 | XMS ---
PreManage Notification: CONCEPCION HERNANDEZ [employer] Events 1 event(s) in the past 18 months Most recent security events: Elopement at [facility] 09/26/2018 11:10 - Other Details: PATIENT LWBS CRITERIA MET - [facility] - Has Care Guidelines - [facility] - 2 Visits in 30 Days CARE PROVIDERS NO DELANEY Physician [employer] Superintendent 05/15/2018-Current PHONE: [phone] No Flores Treatment Current [facility] PHONE: Unknown Guidelines Source: [employer] [facility] Guidelines Date: 11/10/2018 Care Coordination: Mental health services are being provided by [employer].\T\nbsp; Please contact [employer] with mental health concerns.\T\nbsp; [place]/Son Parmar: [phone]\T\nbsp; Sin: [phone]. E.D. VISIT COUNT (12 MO.) 5 LUBNA Duarte TOTAL 5 NOTE: Visits indicate total known visits. ED/UCC VISIT TRACKING (12 MO.) 11/30/2018 13:00 [facility] [place] TYPE: Emergency COMPLAINT: - MEDICAL CLEARANCE 11/09/2018 17:12 [facility] [place] TYPE: Emergency COMPLAINT: - MEDICAL CLEARANCE DIAGNOSES: - Encounter for general psychiatric examination, requested by authority - Schizophrenia, unspecified - Other terminal operator (current) drug therapy - Allergy status to other drugs, medicaments and biological substances status - Essential (primary) hypertension - Nicotine dependence, unspecified, uncomplicated - Bipolar disorder, unspecified 09/26/2018 11:10 [facility] [place] TYPE: Emergency COMPLAINT: - DIZZINESS DIAGNOSES: - Procedure and treatment not carried out due to patient leaving prior to being seen by health care provider - Procedure and treatment not carried out due to patient leaving prior to being seen by health care provider - Dizziness and giddiness 05/13/2018 16:32 [facility] [place] TYPE: Emergency COMPLAINT: - BLOATING DIAGNOSES: - Other [facility] (current[facility] drug therapy - Nicotine dependence, unspecified, uncomplicated - Constipation, unspecified - Essential (primary) hypertension - Allergy status to other drugs, medicaments and biological substances status - Bipolar disorder, unspecified 04/21/2018 17:39 [facility] [place] TYPE: Emergency COMPLAINT: - BILAT EYE PAIN/NO INJURY DIAGNOSES: - Schizophrenia, unspecified - Ocular pain, bilateral - Nicotine dependence, unspecified, uncomplicated - Allergy status to other drugs, medicaments and biological substances status - Bipolar disorder, unspecified - Other terminal operator (current) drug therapy INPATIENT VISIT TRACKING (12 MO.) No inpatient visits to display in this time frame [email or web address]
[2018-11-30] MEDS ORDERED: TRAZODONE HCL100 MG PO (15:35)
== END 2018-11-30 15:48 | disposition home or self-care (01) ==
LOC: ED 12:59
DX: F31.12 Bipolar disorder, current episode manic without psychotic features, moderate (principal); I10 Essential (primary) hypertension; F17.200 Nicotine dependence, unspecified, uncomplicated; Z88.8 Allergy status to other drugs, medicaments and biological substances; Z00.8 Encounter for other general examination; Z79.899 Other long term (current) drug therapy
CPT/HCPCS: 36415; 80053; 80176; 80178; 81001; 84703; 85025; 96372; 99283-25; G0480; J3486

== ENCOUNTER 2024-03-01 07:39 | Emergency (ER) | payer OTHER ==
[~2024-03-01] VITALS: Ht 165.1 cm; Wt 145.6 kg
[~2024-03-01 07:39] MED LIST changes: +ACETAZOLAMIDE500 M1 PO; +ARIPIPRAZOLE10 MG PO; +ERYTHROMYCIN1 GM OP; +GUANFACINE HCL1 MG PO; +LORADAMED10 MG PO; +MELOXICAM15 MG PO; +NAPROSYN500 MG PO; +NEXPLANON68 MG SUB-Q; +NICODERM CQ1 EAC1 TD; +PREDNISONE50 MG PO; +SPIRONOLACTONE100 MG NG; +TRAZODONE HCL100 MG PO; +ULTRAM50 MG PO; +ZONISAMIDE50 MG PO
[2024-03-01] MEDS ORDERED: IBUPROFEN 600 MG TAB PO ONE (08:15)
[2024-03-01] MEDS ORDERED: LIDOCAINE/RACEPINEP/TETRACAINE 3 ML SYR TOP ONE (08:15)
[2024-03-01] MEDS ORDERED: HYDROCODONE/ACETA 7.5/325 TAB PO ONE (08:15)
[2024-03-01] MEDS ORDERED: HYDROCODON-ACE1 EA10 PO (08:49)
[2024-03-01 08:55] VITALS: BP 172/87
== END 2024-03-01 08:55 | disposition home or self-care (01) ==
LOC: ED 07:39
DX: L03.115 Cellulitis of right lower limb (principal); F17.200 Nicotine dependence, unspecified, uncomplicated; Z79.899 Other long term (current) drug therapy; Z88.8 Allergy status to other drugs, medicaments and biological substances
CPT/HCPCS: 10060; 99283-25; A9270

== ENCOUNTER 2024-03-22 08:42 | Emergency (ER) | payer OTHER ==
[~2024-03-22] VITALS: Ht 165.1 cm; Wt 143.9 kg
[~2024-03-22 08:42] MED LIST changes: +HYDROCODON-ACE1 EA10 PO
--- OUTSIDE RECORDS SUMMARY | 2024-03-22 08:49 | XMS ---
PreManage Notification: CONCEPCION HERNANDEZ [employer] Events No recent Security Events currently on file CRITERIA MET - [facility] - 2 Visits in 30 Days CARE PROVIDERS -, [facility] Dentist: Hat Stock Laminating Machine Operator Current [place] PHONE: [phone] -[place]- Dentist: Hat Stock Laminating Machine Operator [facility] PHONE: [phone] Madonna Garner Nurse Practitioner: Family Current COMPUTER PUBLISHER-C PHONE: [phone] Care Guidelines exist for the following facilities: [facility] ( 11/10/2018 ) [facility] VISIT COUNT (12 MO.) 2 LUBNA Duarte TOTAL 2 NOTE: Visits indicate total known visits. ED/UCC VISIT TRACKING (12 MO.) 03/22/2024 08:42 [facility] [place] TYPE: Emergency COMPLAINT: - WOUND CHECK 03/01/2024 07:40 [facility] [place] TYPE: Emergency COMPLAINT: - RT FOOT PAIN DIAGNOSES: - Allergy status to other drugs, medicaments and biological substances - Cellulitis of right lower limb - Nicotine dependence, unspecified, uncomplicated - Other residential (current) drug therapy - Pain in right foot INPATIENT VISIT TRACKING (12 MO.) No inpatient visits to display in this time frame [email or web address]
[2024-03-22] MEDS ORDERED: METFORMIN HCL500 M1 PO (08:58)
[2024-03-22] MEDS ORDERED: BACTRIM DS TAB1 EACH PO (09:14)
[2024-03-22] MEDS ORDERED: KETOROLAC TROME10 MG PO (09:14)
[2024-03-22 09:27] VITALS: BP 123/74
== END 2024-03-22 09:28 | disposition home or self-care (01) ==
LOC: ED 08:42
DX: E11.628 Type 2 diabetes mellitus with other skin complications (principal); L03.115 Cellulitis of right lower limb; S91.301A Unspecified open wound, right foot, initial encounter; F31.9 Bipolar disorder, unspecified; F17.200 Nicotine dependence, unspecified, uncomplicated; E66.01 Morbid (severe) obesity due to excess calories; Z68.43 Body mass index [BMI] 50.0-59.9, adult; Z88.8 Allergy status to other drugs, medicaments and biological substances; Z79.899 Other long term (current) drug therapy; Z79.84 Long term (current) use of oral hypoglycemic drugs
CPT/HCPCS: 99282

== ENCOUNTER 2024-10-21 16:07 | Emergency (ER) | payer OTHER ==
[~2024-10-21] VITALS: Ht 165.1 cm; Wt 142.0 kg
[~2024-10-21 16:07] MED LIST changes: +KETOROLAC TROME10 MG PO; +METFORMIN HCL500 M1 PO
[2024-10-21] MEDS ORDERED: OMEPRAZOLE20 MG PO (16:22)
[2024-10-21] MEDS ORDERED: GLIPIZIDE ER2.5 MG PO (16:22)
[2024-10-21] MEDS ORDERED: LORATADINE10 MG PO (16:22)
[2024-10-21] MEDS ORDERED: LOSARTAN POTASS25 MG PO (16:22)
[2024-10-21] MEDS ORDERED: PREGABALIN75 MG PO (16:23)
[2024-10-21] MEDS ORDERED: SPIRONOLACTONE50 MG PO (16:23)
[2024-10-21] MEDS ORDERED: PREGABALIN150 MG PO (16:23)
[2024-10-21] MEDS ORDERED: ESCITALOPRAM OX10 MG PO (16:23)
[2024-10-21] MEDS ORDERED: ESCITALOPRAM OX20 MG PO (16:23)
[2024-10-21] MEDS ORDERED: ERYTHROMYCIN 3.5 GM HOME.PACK OP ONE (16:45)
[2024-10-21 16:46] VITALS: BP 122/62
== END 2024-10-21 16:48 | disposition home or self-care (01) ==
LOC: ED 16:07
DX: H00.014 Hordeolum externum left upper eyelid (principal); F17.200 Nicotine dependence, unspecified, uncomplicated; Z88.8 Allergy status to other drugs, medicaments and biological substances; Z79.891 Long term (current) use of opiate analgesic; Z79.84 Long term (current) use of oral hypoglycemic drugs
CPT/HCPCS: 99282

== ENCOUNTER 2024-11-04 14:21 | Emergency (ER) | payer OTHER | END 2024-11-04 15:20 | disposition home or self-care (01) | LOC: ED 14:21 | DX: S83.91XA Sprain of unspecified site of right knee, initial encounter (principal); F17.200 Nicotine dependence, unspecified, uncomplicated; Z88.8 Allergy status to other drugs, medicaments and biological substances; X58.XXXA Exposure to other specified factors, initial encounter ==